=== PATIENT | male | born 1980 | race African-American/Black ===

== ENCOUNTER 2016-07-17 02:38 | Inpatient (IN) | payer SELFPAY ==
[2016-07-17] VITALS (10 sets, daily range): BP systolic 118–143; BP diastolic 76–87; PULSE 78–120; RESP 15–20; TEMP 97.4–98.4; O2SAT 94–100
[~2016-07-17] VITALS: Ht 182.9 cm; Wt 68.8 kg
[~2016-07-17 02:38] MED LIST: GLUCTES27 XX; INSU-92; NOVO7030P2 SQ; NOVOLOGSS SQ; Z.0.INSULINSYR XX; Z.0.LANCETS XX
[2016-07-17] MEDS ORDERED: SODIUM CHLOR 0.9% 1000 ML INJ 1,000 ML IV SCH ×2 (03:30→05:27)
[2016-07-17] MEDS ORDERED: DEXT 5%-NACL 0.9% 1000 ML INJ 1,000 ML IV SCH ×2 (03:30→05:27)
[2016-07-17] MEDS: SODIUM CHLOR 0.9% 1000 ML INJ 1,000 ML IV SCH ×2 (03:37→04:30)
--- NOTE | 2016-07-17 03:40 | PD ---
HPI Chief Complaint: Diabetic Time Seen by Provider: 03:22 Travel History International Travel<30 days: No Contact w/Intl Traveler<30days: No Traveled to known affect area: No History of Present Illness HPI 35yo M with insulin dependent diabetes presents to the ED with c/o feeling unwell after running out of insulin 4-5 days ago. Pt has polydipsia and polyuria. Denies any fever, cough, chest pain, sob, n/v, abdominal pain, weakness or numbness. Pt has had multiple prior visits for noncompliance with insulin. PFSH Past Medical History Hx Anticoagulant Therapy: No Autoimmune Disease: No Anxiety: No Depression: No Cancer: No Cardiovascular Problems: No Chemotherapy: No Cerebrovascular Accident: No Diabetes: Yes Patient Takes Glucophage: No Diminished Hearing: No Endocrine: Yes Genitourinary: No Immune Disorder: No Musculoskeletal: No Neurologic: No Psychiatric: No Reproductive: No Respiratory: No Immunizations Current: Yes Migraines: No Radiation Therapy: No Seizures: No Thyroid Disease: No Past Surgical History Abdominal Surgery: No Cardiac Surgery: No Ear Surgery: No Endocrine Surgery: No Eye Surgery: No Genitourinary Surgery: No Gynecologic Surgery: No Hysterectomy: No Oral Surgery: No Thoracic Surgery: No Family History Family Hypercholesterolemia: Yes Social History Alcohol Use: Yes (OCCASIONALLY) Tobacco Use: Yes (1 PPD) Substance Use: No Allergies-Medications (Allergen,Severity, Reaction): Coded Allergies: No Known Allergies (Verified , 07/17/16) Reported Meds & Prescriptions Reported Meds & Active Scripts Active Reported Novolog Inj (Insulin Aspart) 1,000 Unit/10 Ml Vial 1-9 Units SQ ACHS Max dose at bedtime:( )units; sugars less than 70,(0)units; sugars 150-199,(1) unit; sugars 200-249,(3) units; sugars 250-299,(5) units; sugars 300-349,(7) units; sugars greater than 349,(9) units Novolin 70-30 Inj (Insulin Human Isoph/Insulin Regular) 1,000 Unit/10 Ml Vial 30 Units SQ BID Review of Systems Except as stated in HPI: all other systems reviewed are Neg Physical Exam Narrative GENERAL: 35yo M in mild distress. SKIN: Warm and dry. Poor skin turgor. HEAD: Atraumatic. Normocephalic. EYES: Pupils equal and round. No scleral icterus. No injection or drainage. ENT: No nasal bleeding or discharge. Mucous membranes pink and moist. NECK: Trachea midline. No JVD. CARDIOVASCULAR: Tachycardic. No murmur appreciated. RESPIRATORY: No accessory muscle use. Clear to auscultation. Breath sounds equal bilaterally. GASTROINTESTINAL: Abdomen soft, non-tender, nondistended. No rebound tenderness or guarding. MUSCULOSKELETAL: No obvious deformities. No clubbing. No cyanosis. No edema. NEUROLOGICAL: Awake and alert. No obvious cranial nerve deficits. Motor grossly within normal limits. Normal speech. PSYCHIATRIC: Appropriate mood and affect; insight and judgment normal. Data Data Last Documented VS Vital Signs Date Time Temp Pulse Resp B/P Pulse Ox O2 Delivery O2 Flow Rate FiO2 07/17/16 02:42 97.6 120 16 118/80 96 Room Air Orders ^ Yoga Coordinator / Telemetry (07/17/16 03:30) ^ Insert Iv (07/17/16 03:30) Diet Npo (07/17/16 Breakfast) Complete Blood Count With Diff (07/17/16 03:30) Comprehensive Metabolic Panel (07/17/16 03:30) Magnesium (Mg) (07/17/16 03:30) Phosphorus (Po4) (07/17/16 03:30) Beta Hydroxybutyrate (Acetone) (07/17/16 03:30) Sodium Chlor 0.9% 1000 Ml Inj (Ns 1000 M (07/17/16 03:30) Sodium Chlor 0.9% 1000 Ml Inj (Ns 1000 M (07/17/16 03:30) Dext 5%-Nacl 0.9% 1000 Ml Inj (D5w-Ns 10 (07/17/16 03:30) Urinalysis - C+S If Indicated (07/17/16 03:30) Insulin Regular (Iv Infusion) (Novolin R (07/17/16 04:45) Sodium Chlor 0.9% 1000 Ml Inj (Ns 1000 M (07/17/16 05:00) Resp Blood Gas Venous (07/17/16 ) Insulin Human Regular Inj (Novolin R Inj (07/17/16 05:30) Admit Order (Ed Use Only) (07/17/16 05:25) Consult Welding Machine Operator Arc (07/17/16 ) Labs Laboratory Tests Test 07/17/16 07/17/16 03:30 05:20 White Blood Count 4.3 TH/MM3 Red Blood Count 6.11 MIL/MM3 Hemoglobin 17.5 GM/DL Hematocrit 51.7 % Mean Corpuscular Volume 84.6 FL Mean Corpuscular Hemoglobin 28.6 PG Mean Corpuscular Hemoglobin 33.7 % Concent Red Cell Distribution Width 12.5 % Platelet Count 248 TH/MM3 Mean Platelet Volume 8.3 FL Neutrophils (%) (Auto) 59.8 % Lymphocytes (%) (Auto) 31.2 % Monocytes (%) (Auto) 8.3 % Eosinophils (%) (Auto) 0.2 % Basophils (%) (Auto) 0.5 % Neutrophils # (Auto) 2.6 TH/MM3 Lymphocytes # (Auto) 1.3 TH/MM3 Monocytes # (Auto) 0.4 TH/MM3 Eosinophils # (Auto) 0.0 TH/MM3 Basophils # (Auto) 0.0 TH/MM3 CBC Comment DIFF FINAL Differential Comment Sodium Level 123 MEQ/L Potassium Level 5.8 MEQ/L Chloride Level 81 MEQ/L Carbon Dioxide Level 23.4 MEQ/L Anion Gap 19 MEQ/L Blood Urea Nitrogen 30 MG/DL Creatinine 1.89 MG/DL Estimat Glomerular Filtration 49 ML/MIN Rate Random Glucose 776 MG/DL Calcium Level 9.8 MG/DL Phosphorus Level 5.8 MG/DL Magnesium Level 2.8 MG/DL Total Bilirubin 0.6 MG/DL Aspartate Amino Transf 10 U/L (AST/SGOT) Alanine Aminotransferase 26 U/L (ALT/SGPT) Alkaline Phosphatase 105 U/L Total Protein 8.7 GM/DL Albumin 4.2 GM/DL B-Hydroxybutyrate 9.60 MMOL/L Urine Color LIGHT-YELLOW Urine Turbidity CLEAR Urine pH 5.0 Urine Specific [place] 1.029 Urine Protein NEG mg/dL Urine Glucose (UA) 1000 mg/dL Urine Ketones 80 mg/dL Urine Occult Blood NEG Urine Nitrite NEG Urine Bilirubin NEG Urine Urobilinogen LESS THAN 2.0 MG/DL Urine Leukocyte Esterase NEG Urine RBC LESS THAN 1 /hpf Urine WBC 1 /hpf Urine Bacteria RARE /hpf Urine Mucus FEW /lpf Microscopic Urinalysis Comment CULT NOT INDICATED MDM Medical Decision Making Medical Screen Exam Complete: Yes Emergency Medical Condition: Yes Differential Diagnosis DKA vs. Hyperosmolar hyperglycemic syndrome vs. infection Narrative Course 35yo M with insulin dependent diabetes here with elevated glucose secondary to noncompliance. Labs reviewed, no leukocytosis. H/H hemoconcentrated. Pt received 2 liters of NS, 3rd liter ordered. Glucose 776. CO2 23.4. Anion gap is increased at 19. Creatinine elevated at 1.89. K elevated at 5.8 but pt is likely potassium depleted and this will correct once I correct the acidosis. B- hydroxybutrate is elevated at 9.60. Pt started on insulin drip at 7 units/hr and will continue until gap closes. Discussed with Dr. Mccollum and accepted to ICU. ICU consult also placed. Pt agrees with plan. Critical Care Narrative Aggregate critical care time was 35 minutes. Time to perform other separately billable procedures was not included in the critical care time. My time did not include minutes spent treating any other patients simultaneously or on activities that did not directly contribute to the patient's treatment. The services I provided to this patient were to treat and/or prevent clinically significant deterioration that could result in: cardiovascular collapse or . I provided critical care services requiring my management, as noted below: Chart data review, documentation time, medication orders and management, vital sign assessment/reviewing monitor data, ordering and reviewing lab tests, ordering and interpreting/reviewing x-rays and diagnostic studies, care of the patient and discussion of the patient with the admitting physicians. Diagnosis Primary Impression: Diabetic ketoacidosis Qualified Code: E10.10 - Diabetic ketoacidosis without coma associated with type 1 diabetes mellitus Admitting Information Admitting Physician Requests: Minerva Chambers DO Jul 17, 2016 03:40
[2016-07-17 04:02] LABS: AUTOMATED NEUTROPHIL # 2.6 TH/MM3 (1.8-7.7); BASOPHIL % 0.5 % (0.0-2.0); EOSINOPHIL % 0.2 % (0.0-4.0); HEMATOCRIT 51.7 % (39.0-51.0); HEMO FLAGS DIFF FINAL; LYMPH % 31.2 % (9.0-44.0); LYMPHOCYTE # 1.3 TH/MM3 (1.0-4.8); MEAN CELL VOLUME 84.6 FL (80.0-100.0); MEAN CORPUSCULAR HEMOGLOBIN 28.6 PG (27.0-34.0); MEAN CORPUSCULAR HGB CONC 33.7 % (32.0-36.0); MONO % 8.3 % (0.0-8.0); NEUT % 59.8 % (16.0-70.0); PLATELET COUNT 248 TH/MM3 (150-450); RED BLOOD COUNT 6.11 MIL/MM3 (4.50-5.90); RED CELL DISTRIBUTION WIDTH 12.5 % (11.6-17.2); WHITE BLOOD COUNT 4.3 TH/MM3 (4.0-11.0)
[2016-07-17 04:20] LABS: ALKALINE PHOSPHATASE 105 U/L (45-117); ALT (GPT) 26 U/L (12-78); ANION GAP 19 MEQ/L (5-15); AST (GOT) 10 U/L (15-37); BICARBONATE 23.4 MEQ/L (21.0-32.0); BLOOD UREA NITROGEN 30 MG/DL (7-18); CHLORIDE 81 MEQ/L (98-107); GLOMERULAR FILTRATION RATE 49 ML/MIN (>89); MAGNESIUM 2.8 MG/DL (1.5-2.5); POTASSIUM 5.8 MEQ/L (3.5-5.1); TOTAL BILIRUBIN ADULT 0.6 MG/DL (0.2-1.0)
[2016-07-17 04:32] LABS: SODIUM (NA) 123 MEQ/L (136-145)
[2016-07-17] MEDS ORDERED: INSULIN REGULAR (IV INFUSION) 100 UNITS in SODIUM CHLORIDE 0.9% INJ 99 ML IV SCH ×2 (04:45→05:30)
[2016-07-17] MEDS ORDERED: SODIUM CHLOR 0.9% 1000 ML INJ 1,000 ML IV ONE (05:00)
[2016-07-17] MEDS ORDERED: INSULIN HUMAN REGULAR 1,000 UNITS/10 ML VIAL IVP ONE (05:30)
[2016-07-17] MEDS ORDERED: POTASSIUM CHLOR 20 MEQ PREMIX 100 ML IV PRN ×6 (05:30)
[2016-07-17] MEDS ORDERED: SODIUM PHOSPHATE INJ 15 MMOL in SODIUM CHLORIDE 0.9% INJ 100 ML IV PRN (05:30)
[2016-07-17] MEDS ORDERED: MISCELLANEOUS NURSING INFORMATION XX SCH (05:30)
[2016-07-17] MEDS ORDERED: POTASSIUM CHLOR 40 MEQ PREMIX 100 ML IV PRN ×2 (05:30)
[2016-07-17] MEDS ORDERED: SODIUM BICARBONATE 8.4% SOLN 50 MEQ/50 ML VIAL IV PRN ×2 (05:30)
[2016-07-17] MEDS ORDERED: CHLORHEXIDINE GLUCONATE 2 % 1 PACK (2 CLOTHS) TOP PRN (05:30)
[2016-07-17 05:43] LABS: BLOOD GAS VENOUS BASE EXCESS -3.4 mmol/L (-2-2); BLOOD GAS VENOUS HCO3 22 mmol/L (22-26); BLOOD GAS VENOUS O2 CONTENT 13.1 Vol % (9.0-17.0); BLOOD GAS VENOUS O2 HGB SAT 60 % (70-76); BLOOD GAS VENOUS PCO2 51 mmHg (44-48); BLOOD GAS VENOUS PO2 37 mmHg (35-40); BLOOD GAS VENOUS pH 7.27 (7.360-7.400); CRITICAL VALUE YES; TEMP CORR TO 98.6
[2016-07-17 05:45] LABS: DRAW SITE IV; FIO2 21 %; OXYGEN DEVICE ROOM AIR; STAT YES
--- NOTE | 2016-07-17 05:49 | PD.CONS ---
HPI Service Critical Care Medicine Consult Requested By Debbie Reason for Consult DKA Primary Care Physician No Primary Care Physician History of Present Illness 35 y/o presents with mild DKA, normal bicarb, minimal anion gap. Dehydration is moderate to severe. We will defer this consult. Please call if our assistance is needed at anytime. Thanks. Past Family Social History Allergies: Coded Allergies: No Known Allergies (Verified , 07/17/16) Physical Exam Vital Signs Vital Signs Date Time Temp Pulse Resp B/P Pulse Ox O2 Delivery O2 Flow Rate FiO2 07/17/16 02:42 97.6 120 16 118/80 96 Room Air Laboratory Laboratory Tests Test 07/17/16 07/17/16 03:30 05:32 White Blood Count 4.3 Red Blood Count 6.11 Hemoglobin 17.5 Hematocrit 51.7 Mean Corpuscular Volume 84.6 Mean Corpuscular Hemoglobin 28.6 Mean Corpuscular Hemoglobin 33.7 Concent Red Cell Distribution Width 12.5 Platelet Count 248 Mean Platelet Volume 8.3 Neutrophils (%) (Auto) 59.8 Lymphocytes (%) (Auto) 31.2 Monocytes (%) (Auto) 8.3 Eosinophils (%) (Auto) 0.2 Basophils (%) (Auto) 0.5 Neutrophils # (Auto) 2.6 Lymphocytes # (Auto) 1.3 Monocytes # (Auto) 0.4 Eosinophils # (Auto) 0.0 Basophils # (Auto) 0.0 CBC Comment DIFF FINAL Differential Comment Sodium Level 123 Potassium Level 5.8 Chloride Level 81 Carbon Dioxide Level 23.4 Anion Gap 19 Blood Urea Nitrogen 30 Creatinine 1.89 Estimat Glomerular Filtration 49 Rate Random Glucose 776 Calcium Level 9.8 Phosphorus Level 5.8 Magnesium Level 2.8 Total Bilirubin 0.6 Aspartate Amino Transf 10 (AST/SGOT) Alanine Aminotransferase 26 (ALT/SGPT) Alkaline Phosphatase 105 Total Protein 8.7 Albumin 4.2 B-Hydroxybutyrate 9.60 Blood Gas Puncture Site IV Blood Gas Patient Temperature 98.6 Venous Blood pH 7.27 Venous Blood Partial Pressure 51 CO2 Venous Blood Partial Pressure 37 O2 Venous Blood HCO3 22 Venous Blood Oxygen Saturation 60 Venous Blood Oxygen Content 13.1 Venous Blood Base Excess -3.4 Oxygen Delivery Device ROOM AIR Blood Gas Inspired Oxygen 21 Result Diagram: 07/17/16 0330 07/17/16 0330 Christopher Salinas MD Jul 17, 2016 05:49
[2016-07-17 05:58] LABS: BACTERIA, URINE RARE /hpf; BLOOD, URINE NEG (NEG); COMMENT (UR) CULT NOT INDICATED; CULTURE IF INDICATED CULT NOT INDICATED; GLUCOSE,URINE 1000 mg/dL (NEG); KETONE, URINE 80 mg/dL (NEG); MUCUS URINE FEW /lpf (OCC); NITRITE,URINE NEG (NEG); URINE COLOR LIGHT-YELLOW (YELLW/STRAW)
[2016-07-17] MEDS ORDERED: NOVOLOGP2 SQ (08:06)
[2016-07-17] MEDS ORDERED: NOVO7030P2 SQ (08:06)
[2016-07-17] MEDS ORDERED: GLUCAGON 1 MG/ML VIAL OTHER PRN (11:45)
[2016-07-17] MEDS ORDERED: DEXTROSE 50% IN WATER 50 ML VIAL(D50) IV PUSH PRN (11:45)
--- NOTE | 2016-07-17 11:47 | HHI.HP ---
[facility] Primary [facility] Physician No Primary Care Physician Admission Diagnosis DKA Diagnoses: Chief Complaint: polyuria, polydipsia, run out of meds. Travel History International Travel<30 Days: No Contact w/Intl Traveler <30 Da: No Traveled to Known Affected Are: No History of Present Illness 35yo M with insulin dependent diabetes presents to the ED with c/o feeling unwell after running out of insulin 4-5 days ago. Pt has polydipsia and polyuria. Denies any fever, cough, chest pain, sob, n/v, abdominal pain, weakness or numbness. Pt has had multiple prior visits for noncompliance with insulin and follow up. Review of Systems Constitutional: DENIES: Fever, Chills, Change in appetite Endocrine: COMPLAINS OF: Polydipsia, Polyuria, DENIES: Heat/cold intolerance Eyes: DENIES: Blurred vision, Eye pain Ears, nose, mouth, throat: DENIES: Tinnitus, Hearing loss, Vertigo, Nasal discharge, Oral lesions, Throat pain, Hoarseness, Ear Pain, Running Nose, Epistaxis, Sinus Pain, Toothache, Odynophagia Respiratory: DENIES: Apneas, Cough, Snoring, Wheezing, Hemoptysis, Sputum production, Shortness of breath Cardiovascular: DENIES: Chest pain, Palpitations, Syncope, Dyspnea on Exertion , PND, Lower Extremity Edema, Orthopnea, Claudication Gastrointestinal: DENIES: Abdominal pain, Black stools, Bloody stools, Constipation, Diarrhea, Nausea, Vomiting, Difficulty Swallowing, Anorexia Genitourinary: DENIES: Urgency, Hematuria Integumentary: DENIES: Rash Neurologic: DENIES: Abnormal gait, Headache, Localized weakness, Paresthesias, Seizures, Speech Problems, Tremor, Poor Balance Psychiatric: DENIES: Anxiety, Depression Past Family Social History Past Medical History IDDM, noncompliance with meds and follow up Past Surgical History None Reported Medications Reported Meds & Active Scripts Active Reported Novolog Inj (Insulin Aspart) 1,000 Unit/10 Ml Vial 1-9 Units SQ ACHS Max dose at bedtime:( )units; sugars less than 70,(0)units; sugars 150-199,(1) unit; sugars 200-249,(3) units; sugars 250-299,(5) units; sugars 300-349,(7) units; sugars greater than 349,(9) units Novolin 70-30 Inj (Insulin Human Isoph/Insulin Regular) 1,000 Unit/10 Ml Vial 30 Units SQ BID Allergies: Coded Allergies: No Known Allergies (Verified , 07/17/16) Family History Maternal GM with DM Social History Tobacco use 1 pack per day Occasional marijuana use Denies alcohol use Physical Exam Vital Signs Vital Signs Date Time Temp Pulse Resp B/P Pulse Ox O2 Delivery O2 Flow Rate FiO2 07/17/16 10:00 86 07/17/16 08:02 101 20 132/77 95 Room Air 07/17/16 06:22 92 18 123/83 100 Room Air 07/17/16 02:42 97.6 120 16 118/80 96 Room Air Physical Exam GENERAL: This is a well-nourished, well-developed patient, in no apparent distress. SKIN: No rashes, ecchymoses or lesions. Cool and dry. HEAD: Atraumatic. Normocephalic. No temporal or scalp tenderness. EYES: Pupils equal round and reactive. Extraocular motions intact. No scleral icterus. No injection or drainage. ENT: Nose without bleeding, purulent drainage or septal hematoma. Throat without erythema, tonsillar hypertrophy or exudate. Uvula midline. Airway patent. NECK: Trachea midline. No JVD or lymphadenopathy. Supple, nontender, no meningeal signs. CARDIOVASCULAR: Regular rate and rhythm without murmurs, gallops, or rubs. RESPIRATORY: Clear to auscultation. Breath sounds equal bilaterally. No wheezes , rales, or rhonchi. GASTROINTESTINAL: Abdomen soft, non-tender, nondistended. No hepato-splenomegaly , or palpable masses. No guarding. MUSCULOSKELETAL: Extremities without clubbing, cyanosis, or edema. No joint tenderness, effusion, or edema noted. No calf tenderness. Negative Homans sign bilaterally. NEUROLOGICAL: Awake and alert. Cranial nerves II through XII intact. Motor and sensory grossly within normal limits. Five out of 5 muscle strength in all muscle groups. Normal speech. Laboratory Laboratory Tests Test 07/17/16 07/17/16 07/17/16 03:30 05:20 05:32 White Blood Count 4.3 Red Blood Count 6.11 Hemoglobin 17.5 Hematocrit 51.7 Mean Corpuscular Volume 84.6 Mean Corpuscular Hemoglobin 28.6 Mean Corpuscular Hemoglobin 33.7 Concent Red Cell Distribution Width 12.5 Platelet Count 248 Mean Platelet Volume 8.3 Neutrophils (%) (Auto) 59.8 Lymphocytes (%) (Auto) 31.2 Monocytes (%) (Auto) 8.3 Eosinophils (%) (Auto) 0.2 Basophils (%) (Auto) 0.5 Neutrophils # (Auto) 2.6 Lymphocytes # (Auto) 1.3 Monocytes # (Auto) 0.4 Eosinophils # (Auto) 0.0 Basophils # (Auto) 0.0 CBC Comment DIFF FINAL Differential Comment Sodium Level 123 Potassium Level 5.8 Chloride Level 81 Carbon Dioxide Level 23.4 Anion Gap 19 Blood Urea Nitrogen 30 Creatinine 1.89 Estimat Glomerular Filtration 49 Rate Random Glucose 776 Calcium Level 9.8 Phosphorus Level 5.8 Magnesium Level 2.8 Total Bilirubin 0.6 Aspartate Amino Transf 10 (AST/SGOT) Alanine Aminotransferase 26 (ALT/SGPT) Alkaline Phosphatase 105 Total Protein 8.7 Albumin 4.2 B-Hydroxybutyrate 9.60 Urine Color LIGHT-YELLOW Urine Turbidity CLEAR Urine pH 5.0 Urine Specific [place] 1.029 Urine Protein NEG Urine Glucose (UA) 1000 Urine Ketones 80 Urine Occult Blood NEG Urine Nitrite NEG Urine Bilirubin NEG Urine Urobilinogen LESS THAN 2.0 Urine Leukocyte Esterase NEG Urine RBC LESS THAN 1 Urine WBC 1 Urine Bacteria RARE Urine Mucus FEW Microscopic Urinalysis Comment CULT NOT INDICATED Blood Gas Puncture Site IV Blood Gas Patient Temperature 98.6 Venous Blood pH 7.27 Venous Blood Partial Pressure 51 CO2 Venous Blood Partial Pressure 37 O2 Venous Blood HCO3 22 Venous Blood Oxygen Saturation 60 Venous Blood Oxygen Content 13.1 Venous Blood Base Excess -3.4 Oxygen Delivery Device ROOM AIR Blood Gas Inspired Oxygen 21 Result Diagram: 07/17/1632907/17/16329 Assessment and Plan Assessment and Plan 1. Hyperglycemia: Non-Ketotic Hyperosmolar State. Secondary to Non- compliance on Insulin, ran out of meds 4 days ago. BS 1157 on arrival, CO2 28, B-hydroxy minimally elevated. S/p 3L IVF and started on Insulin gtt in ER. Will continue w/ Insulin protocol for now, plan to d/c Insulin gtt after improvement of BS. Check Hgb A1c. Continue IVF. 2. DM: Uncontrolled secondary to Non-compliance ( last A1c 12/12/15 was greater than 19). Normally on Insulin 70/30 30u bid. Will start levemir and also ISS. 3. Tobacco Abuse: Pt counselled. Ativan/NicoDerm prn if needed. 4. DVT Prophylaxis: SCD/Teds. 5. Case management for d/c planning as needed. Code Status Full code Discussed Condition With Patient, ICU nurse Physician Certification 2 Midnight Certification Type: Admission for Inpatient Services Order for Inpatient Services The services are ordered in accordance with Medicare regulations or non- Medicare payer requirements, as applicable. In the case of services not specified as inpatient-only, they are appropriately provided as inpatient services in accordance with the 2-midnight benchmark. Estimated LOS (days): 3 days is the estimated time the patient will need to remain in the hospital, assuming treatment plan goals are met and no additional complications. Post-Hospital Plan: Home Tiff Alfred MD Jul 17, 2016 11:47
[2016-07-17 12:08] LABS: BICARBONATE 30.2 MEQ/L (21.0-32.0); MAGNESIUM 2.3 MG/DL (1.5-2.5)
[2016-07-17] MEDS ORDERED: INSULIN DETEMIR 100 UNITS/ML VIAL SQ ONE (12:45)
[2016-07-17 17:19] LABS: BETA-HYDROXYBUTYRATE 4.06 MMOL/L (0.00-0.39); BICARBONATE 28.4 MEQ/L (21.0-32.0); MAGNESIUM 2.1 MG/DL (1.5-2.5); POTASSIUM 5.3 MEQ/L (3.5-5.1)
[2016-07-17] MEDS: INSULIN ASPART SUPPLEMENTAL SCALE SQ SCH ×2 (17:47→21:00)
[2016-07-17] MEDS ORDERED: INSULIN DETEMIR 100 UNITS/ML VIAL SQ SCH (21:00)
[2016-07-17 23:24] LABS: BICARBONATE 29.3 MEQ/L (21.0-32.0); POTASSIUM 3.8 MEQ/L (3.5-5.1)
[2016-07-18] VITALS: BP 146/90; PULSE 95; RESP 16; TEMP 98.6; O2SAT 99
[2016-07-18] MEDS ORDERED: INSULIN HUMAN REGULAR 1,000 UNITS/10 ML VIAL IVP ONE (01:15)
[2016-07-18] MEDS ORDERED: CHLORHEXIDINE GLUCONATE 2 % 1 PACK (2 CLOTHS) TOP SCH (04:00)
[2016-07-18 04:05] VITALS: BP_SYST 116; BP_SYST 141; BP_DIAS 69; BP_DIAS 73; PULSE 72; PULSE 92; RESP 16; TEMP 95.8; TEMP 97.8; O2SAT 97; O2SAT 99
[2016-07-18 04:58] LABS: BETA-HYDROXYBUTYRATE 0.16 MMOL/L (0.00-0.39); BICARBONATE 32.3 MEQ/L (21.0-32.0); MAGNESIUM 2.3 MG/DL (1.5-2.5); POTASSIUM 3.7 MEQ/L (3.5-5.1)
[2016-07-18] MEDS: INSULIN ASPART SUPPLEMENTAL SCALE SQ SCH (07:00)
[2016-07-18 08:00] VITALS: BP 118/92; PULSE 93; RESP 20; TEMP 98; O2SAT 99
[2016-07-18] MEDS ORDERED: NOVO7030P2 SQ (08:00)
[2016-07-18] MEDS ORDERED: NOVOLOGP2 SQ (08:00)
--- NOTE | 2016-07-18 08:00 | HHI.DCPOC ---
Discharge Care Plan Goals to Promote Your Health * To prevent worsening of your condition and complications * To maintain your health at the optimal level Directions to Meet Your Goals Take your medications as prescribed Follow your dietary instruction Follow activity as directed Keep your appointments as scheduled Take your immunizations and boosters as scheduled If your symptoms worsen call your PCP, if no PCP go to Urgent Care Center or Emergency Room Smoking is Dangerous to Your Health. Avoid second hand smoke Call the 24-hour hour crisis hotline for domestic abuse at Tiff Alfred MD Jul 18, 2016 08:00
[2016-07-18] MEDS ORDERED: INSU1MIS15 (08:05)
[2016-07-18] MEDS ORDERED: BIOM30MI (08:05)
[2016-07-18] MEDS ORDERED: GLUCKIT15 (08:05)
[2016-07-18] MEDS ORDERED: GLUCTES12 (08:05)
[2016-07-18] MEDS ORDERED: LANCETS1 MI1 (08:05)
--- NOTE | 2016-07-18 08:12 | HHI.PR ---
Subjective Remarks Feels much better. Tolerates food, no n/v/d/c. BS better controlled Objective Vitals Vital Signs Date Time Temp Pulse Resp B/P Pulse Ox O2 Delivery O2 Flow Rate FiO2 07/18/16 04:05 97.8 92 16 116/69 97 07/18/16 00:00 98.6 95 16 146/90 99 07/17/16 21:10 98.4 98 15 121/76 97 07/17/16 20:00 97 07/17/16 16:31 90 07/17/16 16:00 97.8 78 20 132/81 100 07/17/16 13:58 97.4 91 17 143/87 100 07/17/16 12:00 98.0 95 18 137/80 94 07/17/16 12:00 95 07/17/16 10:00 86 I/O 07/17/16 07/17/16 07/17/16 07/18/16 07/18/16 07/18/16 07:00 15:00 23:00 07:00 15:00 23:00 Intake Total 1797 ml 960 ml 680 ml Output Total 750 ml Balance 1047 ml 960 ml 680 ml Intake Oral 420 ml 960 ml 680 ml IV Total 1377 ml Output Urine Total 750 ml # Voids 1 2 3 # Bowel Movements 2 0 Result Diagram: 07/17/16 0330 07/18/16 0402 Objective Remarks GENERAL: This is a well-nourished, well-developed patient, in no apparent distress. SKIN: No rashes, ecchymoses or lesions. Cool and dry. HEAD: Atraumatic. Normocephalic. No temporal or scalp tenderness. EYES: Pupils equal round and reactive. Extraocular motions intact. No scleral icterus. No injection or drainage. ENT: Nose without bleeding, purulent drainage or septal hematoma. Throat without erythema, tonsillar hypertrophy or exudate. Uvula midline. Airway patent. NECK: Trachea midline. No JVD or lymphadenopathy. Supple, nontender, no meningeal signs. CARDIOVASCULAR: Regular rate and rhythm without murmurs, gallops, or rubs. RESPIRATORY: Clear to auscultation. Breath sounds equal bilaterally. No wheezes , rales, or rhonchi. GASTROINTESTINAL: Abdomen soft, non-tender, nondistended. No hepato-splenomegaly , or palpable masses. No guarding. MUSCULOSKELETAL: Extremities without clubbing, cyanosis, or edema. No joint tenderness, effusion, or edema noted. No calf tenderness. Negative Homans sign bilaterally. NEUROLOGICAL: Awake and alert. Cranial nerves II through XII intact. Motor and sensory grossly within normal limits. Five out of 5 muscle strength in all muscle groups. Normal speech. A/P Assessment and Plan 1. Hyperglycemia: Non-Ketotic Hyperosmolar State. Secondary to Non- compliance on Insulin, ran out of meds 4 days ago. BS 1157 on arrival, CO2 28, B-hydroxy minimally elevated. S/p 3L IVF and started on Insulin gtt in ER. Will continue w/ Insulin protocol for now, plan to d/c Insulin gtt after improvement of BS. Check Hgb A1c. Continue IVF. 2. DM: Uncontrolled secondary to Non-compliance ( last A1c 12/12/15 was greater than 19). Normally on Insulin 70/30 30u bid. Will start levemir and also ISS. BS is better controlled. 3. Tobacco Abuse: Pt counselled. Ativan/NicoDerm prn if needed. 4. DVT Prophylaxis: SCD/Teds. 5. Case management for d/c planning as needed. Code Status Full code Discussed Condition With Patient, nurse Discharge Planning DC home infairly good condition To followup with PCP (Dr Bates) and outreach educator as OP. Refill home insulin, and DME supplies. Meds per med reconciliations Activity ad zara Diet: Diabetic diet Adviced compliance with medications, diet and appointments. Tiff Alfred MD Jul 18, 2016 08:12
== END 2016-07-18 14:12 | disposition home or self-care (01) | DRG 639 ==
LOC: NEPE 02:38 → NEDA 05:27 → HIMW 08:38 → N06A 14:17
PROVIDERS: ADMIT Hospitalist; ATTEND Hospitalist
DX: E10.10 Type 1 diabetes mellitus with ketoacidosis without coma (principal); E86.0 Dehydration; Z91.14 Patient's other noncompliance with medication regimen; Z79.4 Long term (current) use of insulin; F17.210 Nicotine dependence, cigarettes, uncomplicated; F12.90 Cannabis use, unspecified, uncomplicated
CPT/HCPCS: 80048; 80053; 81001; 82010; 82805; 82948; 83735; 84100; 85025; 87641; 96360; J1815; J1817; J7030; J7042

== ENCOUNTER 2016-07-24 22:44 | Inpatient (IN) | payer SELFPAY ==
[~2016-07-24] VITALS: Ht 182.9 cm; Wt 73.0 kg
[~2016-07-24 22:44] MED LIST changes: +BIOM30MI; +GLUCKIT15; +GLUCTES12; -GLUCTES27 XX; -INSU-92; +INSU1MIS15; +LANCETS1 MI1; +NOVOLOGP2 SQ; -NOVOLOGSS SQ; -Z.0.INSULINSYR XX; -Z.0.LANCETS XX
[2016-07-24 22:47] VITALS: BP 134/86; PULSE 91; RESP 16; TEMP 98.2; O2SAT 97
[2016-07-24] MEDS ORDERED: SODIUM CHLOR 0.9% 1000 ML INJ 1,000 ML IV ONE ×2 (23:15)
--- NOTE | 2016-07-24 23:30 | PD ---
HPI Chief Complaint: Diabetic Time Seen by Provider: 23:02 Travel History International Travel<30 days: No Contact w/Intl Traveler<30days: No Traveled to known affect area: No History of Present Illness HPI The patient is a 35 year old male who presents to the [facility] emergency department with a history of diabetes mellitus, first diagnosed 20 years ago, with recent admission on July 17 related to DKA and medication noncompliance. The patient was discharged the next day and given prescriptions for Levemir and sliding scale insulin. He reports that the medications were actually filled for him prior to discharge. He reports that he was staying with her friend and unfortunately got kicked out. The friend broke his bottles of insulin and he has not been taking them since Saturday. He reports that 2 days ago he began to have generalized abdominal discomfort, polyuria, and polydipsia. He denies having any nausea or vomiting. The patient reports that he last moved his bowels yesterday. The patient denies any recent fevers, cough , congestion, neck pain, chest pain, shortness of breath, vomiting, diarrhea, or neurologic symptoms. [facility] Past Medical History Narrative Medical The patient's past medical history is significant for diabetes mellitus, diagnosed reportedly 20 years ago, history of medication noncompliance. Hx Anticoagulant Therapy: No Autoimmune Disease: No Anxiety: No Depression: No Cancer: No Cardiovascular Problems: No Chemotherapy: No Cerebrovascular Accident: No Diabetes: Yes Patient Takes Glucophage: No Diminished Hearing: No Endocrine: Yes Gastrointestinal Disorders: No Genitourinary: No Headaches: No Immune Disorder: No Implanted Vascular Access Dvce: No Musculoskeletal: No Neurologic: No Psychiatric: No Reproductive: No Respiratory: No Immunizations Current: Yes Migraines: No Radiation Therapy: No Seizures: No Thyroid Disease: No Influenza Vaccination: Yes Past Surgical History Narrative Surgical The patient's past surgical history is significant for none. Surgical History: No Previous Surgery Abdominal Surgery: No Cardiac Surgery: No Ear Surgery: No Endocrine Surgery: No Eye Surgery: No Genitourinary Surgery: No Gynecologic Surgery: No Hysterectomy: No Neurologic Surgery: No Oral Surgery: No Thoracic Surgery: No Other Surgery: No Family History Family Hypercholesterolemia: Yes Social History Alcohol Use: Yes (OCCASIONALLY) Tobacco Use: Yes (1 PPD) Substance Use: Yes (marijuana) Allergies-Medications (Allergen,Severity, Reaction): Coded Allergies: No Known Allergies (Verified , 07/24/16) Reported Meds & Prescriptions Reported Meds & Active Scripts Active Sharpsafety Sharps Contai (Parenteral Therapy Supplies) 1 Mis Mis 1 Ea .ROUTE DIRECTED Glucocom Test Strips (Blood Glucose Test Strips) 1 Whitney Whitney 1 Ea .ROUTE DIRECTED Lancets 1 Mis Mis 1 Ea .ROUTE DIRECTED Insulin Syringe/U-100/31G X 5/16" 1 ml 1 Mis Mis 1 Ea .ROUTE DIRECTED Glucocom Blood Glucose Mo W/Device (Device) 1 Kit Kit 1 Kit .ROUTE DIRECTED Novolog Inj (Insulin Aspart) 1,000 Unit/10 Ml Vial 1-9 Units SQ ACHS Max dose at bedtime:( )units; sugars less than 70,(0)units; sugars 150-199,(1) unit; sugars 200-249,(3) units; sugars 250-299,(5) units; sugars 300-349,(7) units; sugars greater than 349,(9) units Novolin 70-30 Inj (Insulin Human Isoph/Insulin Regular) 1,000 Unit/10 Ml Vial 30 Units SQ BID Review of Systems Except as stated in HPI: all other systems reviewed are Neg General / Constitutional: No: Fever Eyes: No: Visual changes HENT: No: Headaches Cardiovascular: No: Chest Pain or Discomfort Respiratory: No: Shortness of Breath Gastrointestinal: Positive: Abdominal Pain, No: Nausea, Vomiting, Diarrhea, Changes in Bowel Habits, Indigestion, Loss of Appetite Genitourinary: Positive: Frequency, No: Urgency, Dysuria, Flank Pain Musculoskeletal: No: Pain Skin: No Rash Neurologic: Positive: Weakness (generalized weakness), No: Focal Abnormalities , Headache, Change in Mentation, Sensory Disturbance Psychiatric: No: Depression Endocrine: Positive: Polyuria, Polydipsia Hematologic/Lymphatic: No: Easy Bruising Physical Exam Narrative General: The patient is a well-developed, thin appearing male, in no acute distress. Head and Neck exam: Head is normocephalic atraumatic. Eyes: Pupils are equal round and reactive to light. Nose: Midline septum with pink mucous membranes Mouth: Dentition unremarkable. Tacky mucus membranes. Posterior oropharynx is not erythematous. No tonsillar hypertrophy. Uvula midline. Airway patent. Neck: No palpable lymphadenopathy. No nuchal rigidity. No thyromegaly. Cardiovascular: Regular rate and rhythm without murmurs, gallops, or rubs. Lungs: Clear to auscultation bilaterally. No wheezes, rhonchi, or rales. Abdomen: Soft, with reported discomfort on palpation in the suprapubic area, no other tenderness on palpation of the other quadrants of the abdomen. No guarding, rebound, or rigidity. Normal bowel sounds are audible. Extremities: No clubbing, cyanosis, or edema. 2+ pulses in his radial artery bilaterally. No calf tenderness on palpation. Back: No spinous process tenderness to palpation. No costovertebral angle tenderness to palpation. Neurologic Exam: Grossly nonfocal. Skin Exam: No rash noted. Intact skin that is warm and dry. Data Data Last Documented VS Vital Signs Date Time Temp Pulse Resp B/P Pulse Ox O2 Delivery O2 Flow Rate FiO2 07/24/16 22:47 98.2 91 16 134/86 97 Orders Electrocardiogram (07/24/16 23:13) Complete Blood Count With Diff (07/24/16 23:13) Comprehensive Metabolic Panel (07/24/16 23:13) Creatine Kinase (Cpk) (07/24/16 23:13) Ckmb (Isoenzyme) Profile (07/24/16 23:13) Troponin I (07/24/16 23:13) B-Type Natriuretic Peptide (07/24/16 23:13) Arterial Blood Gas (Abg) (07/24/16 23:13) Lipase (07/24/16 23:13) Urinalysis - C+S If Indicated (07/24/16 23:13) Magnesium (Mg) (07/24/16 23:13) Beta Hydroxybutyrate (Acetone) (07/24/16 23:13) Phosphorus (Po4) (07/24/16 23:13) Chest, Single Ap (07/24/16 23:13) Iv Access Insert/Monitor (07/24/16 23:13) Ecg Monitoring (07/24/16 23:13) Oximetry (07/24/16 23:13) Sodium Chlor 0.9% 1000 Ml Inj (Ns 1000 M (07/24/16 23:15) Sodium Chlor 0.9% 1000 Ml Inj (Ns 1000 M (07/24/16 23:15) CKMB (07/24/16 23:20) CKMB% (07/24/16 23:20) Insulin Human Regular Inj (Novolin R Inj (07/25/16 00:15) Admit Order (Ed Use Only) (07/25/16 01:35) Sodium Chlor 0.9% 1000 Ml Inj (Ns 1000 M (07/25/16 01:35) Dext 5%-Nacl 0.9% 1000 Ml Inj (D5w-Ns 10 (07/25/16 01:35) Insulin Regular (Iv Infusion) (Novolin R (07/25/16 01:45) Potassium Chlor 40 Meq Premix (Kcl 40 Me (07/25/16 01:45) Potassium Chlor 40 Meq Premix (Kcl 40 Me (07/25/16 01:45) Potassium Chlor 20 Meq Premix (Kcl 20 Me (07/25/16 01:45) Potassium Chlor 20 Meq Premix (Kcl 20 Me (07/25/16 01:45) Potassium Chlor 20 Meq Premix (Kcl 20 Me (07/25/16 01:45) Potassium Chlor 20 Meq Premix (Kcl 20 Me (07/25/16 01:45) Potassium Chlor 20 Meq Premix (Kcl 20 Me (07/25/16 01:45) Potassium Chlor 20 Meq Premix (Kcl 20 Me (07/25/16 01:45) Sodium Bicarbonate 8.4% Inj (Sodium Bica (07/25/16 01:45) Sodium Bicarbonate 8.4% Inj (Sodium Bica (07/25/16 01:45) Sodium Phosphate Inj (Sodium Phosphate I (07/25/16 01:45) Labs Laboratory Tests Test 07/24/16 07/24/16 07/25/16 07/25/16 23:20 23:30 00:25 01:20 White Blood Count 3.6 TH/MM3 Red Blood Count 5.51 MIL/MM3 Hemoglobin 15.8 GM/DL Hematocrit 47.9 % Mean Corpuscular Volume 86.9 FL Mean Corpuscular Hemoglobin 28.7 PG Mean Corpuscular Hemoglobin 33.1 % Concent Red Cell Distribution Width 12.4 % Platelet Count 220 TH/MM3 Mean Platelet Volume 8.9 FL Neutrophils (%) (Auto) 53.2 % Lymphocytes (%) (Auto) 36.7 % Monocytes (%) (Auto) 8.2 % Eosinophils (%) (Auto) 0.9 % Basophils (%) (Auto) 1.0 % Neutrophils # (Auto) 1.9 TH/MM3 Lymphocytes # (Auto) 1.3 TH/MM3 Monocytes # (Auto) 0.3 TH/MM3 Eosinophils # (Auto) 0.0 TH/MM3 Basophils # (Auto) 0.0 TH/MM3 CBC Comment DIFF FINAL Differential Comment B-Type Natriuretic Peptide LESS THAN 2 PG/ML Sodium Level 116 MEQ/L 132 MEQ/L Potassium Level 5.7 MEQ/L 4.4 MEQ/L Chloride Level 77 MEQ/L 92 MEQ/L Carbon Dioxide Level 29.7 MEQ/L 30.7 MEQ/L Anion Gap 9 MEQ/L 9 MEQ/L Blood Urea Nitrogen 26 MG/DL 25 MG/DL Creatinine 1.71 MG/DL 1.37 MG/DL Estimat Glomerular Filtration 55 ML/MIN 71 ML/MIN Rate Random Glucose 1144 MG/DL 728 MG/DL Calcium Level 8.5 MG/DL 8.6 MG/DL Phosphorus Level 2.9 MG/DL Magnesium Level 2.4 MG/DL Total Bilirubin 0.8 MG/DL Aspartate Amino Transf 27 U/L (AST/SGOT) Alanine Aminotransferase 51 U/L (ALT/SGPT) Alkaline Phosphatase 173 U/L Total Creatine Kinase 276 U/L Creatine Kinase MB 4.1 NG/ML Troponin I LESS THAN 0.02 NG/ML Total Protein 8.3 GM/DL Albumin 3.8 GM/DL Lipase 68 U/L B-Hydroxybutyrate 2.03 MMOL/L Blood Gas Puncture Site LT RADIAL Blood Gas Patient Temperature 98.6 Blood Gas HCO3 29 mmol/L Blood Gas Base Excess 3.7 mmol/L Blood Gas Oxygen Saturation 90 % Arterial Blood pH 7.37 Arterial Blood Partial 51 mmHg Pressure CO2 Arterial Blood Partial 83 mmHG Pressure O2 Arterial Blood Oxygen Content 18.7 Vol % Arterial Blood 5.2 % Carboxyhemoglobin Arterial Blood Methemoglobin 2.1 % Blood Gas Hemoglobin 14.8 G/DL Oxygen Delivery Device ROOM AIR Blood Gas Inspired Oxygen 21 % Urine Color COLORLESS Urine Turbidity CLEAR Urine pH 6.5 Urine Specific [place] 1.027 Urine Protein NEG mg/dL Urine Glucose (UA) 1000 mg/dL Urine Ketones 10 mg/dL Urine Occult Blood NEG Urine Nitrite NEG Urine Bilirubin NEG Urine Urobilinogen LESS THAN 2.0 MG/DL Urine Leukocyte Esterase NEG Urine RBC 1 /hpf Urine WBC LESS THAN 1 /hpf Microscopic Urinalysis Comment CULT NOT INDICATED MDM Medical Decision Making Medical Screen Exam Complete: Yes Emergency Medical Condition: Yes Medical Record Reviewed: Yes Interpretation(s) Last Impressions Chest X-Ray 07/24/16 5323 Signed Impressions: Service Date/Time: Sunday, July 24, 2016 23:29 - CONCLUSION: No acute disease. Enoc Ceballos MD Differential Diagnosis DKA, versus hyperosmolar hyperglycemia, versus other electrolyte abnormality, versus dehydration Narrative Course During the course of the patients emergency department visit, the patients history, examination, and differential diagnosis were reviewed with the patient. The patient had IV access obtained and blood work sent for analysis. The patient was placed on a monitor and storage bin tender with oximetry and blood pressure monitoring. An EKG was done. The patient's Accu-Chek revealed that his blood sugar was critically high. The patient had an EKG done on arrival that revealed a sinus rhythm heart rate of 81, QRS duration 86 ms, QTC 404 ms, no acute ST segment elevation is noted that is new compared to previously. The patient does appear to have some J-point elevation in leads V4 and V5. The patient was provided normal saline 1 L IV fluid bolus which was administered 2. The patients laboratory studies were reviewed and remarkable for a CMP that is remarkable for a sodium of 116, chloride 77, potassium 5.7, CO2 29.7, BUN 26, creatinine 1.71, glucose 1144, alkaline phosphatase 173, CPK and troponin I negative, BNP is less than 2, lipase 68. I suspect that the patient's hyponatremia is a pseudohyponatremia from hyperglycemia. The patient's basic metabolic profile will be repeated at the conclusion of this to liter normal saline IV fluid bolus. The patient was given regular insulin 0.1 units per KG bolus times one, therefore 7 units was administered 1. The patient's repeat basic metabolic profile shows a sodium of 132, potassium 4.4, chloride 92, CO2 30.7, BUN 25, creatinine 1.37, glucose 728. Beta hydroxybutyrate is 2.03, urinalysis shows 1000 glucose and 10 ketones, ABG shows a pH of 7.37 bicarbonate 29, base excess 3.7, PCO2 51 PO2 83 with a carboxyhemoglobin of 5.2. Radiology studies were reviewed and remarkable for a chest x-ray that shows no acute abnormality. The patients results were discussed with the patient, including the plan of care. I explained that further testing and/ or monitoring is indicated based on the patients history, examination, and/ or laboratory findings. Therefore, I recommended admission for additional evaluation. The patient expressed understanding and was agreeable with this plan. The patient was admitted to the hospital in guarded condition and sent to a bed under the care of the [facility]. Critical Care Narrative Aggregate critical care time was 32 minutes. Time to perform other separately billable procedures was not included in the critical care time. My time did not include minutes spent treating any other patients simultaneously or on activities that did not directly contribute to the patient's treatment. The services I provided to this patient were to treat and/or prevent clinically significant deterioration that could result in: Progression to metabolic acidosis and DKA, versus dehydration with cardiovascular collapse I provided critical care services requiring my management, as noted below: Chart data review, documentation time, medication orders and management, vital sign assessments/reviewing monitor data, ordering and reviewing lab tests, ordering and interpreting/reviewing x-rays and diagnostic studies, care of the patient and discussion of the patient with the admitting physicians. Physician Communication Physician Communication The patient's case was discussed with Dr. Mccollum who did agree to admit the patient for continued evaluation and treatment at this time. Diagnosis Primary Impression: Hyperglycemia Additional Impression: Noncompliance w/medication treatment due to intermit use of medication Admitting Information Admitting Physician Requests: Jaqueline Mckeon MD Jul 24, 2016 23:30
[2016-07-24 23:39] LABS: AUTOMATED NEUTROPHIL # 1.9 TH/MM3 (1.8-7.7); EOSINOPHIL % 0.9 % (0.0-4.0); HEMATOCRIT 47.9 % (39.0-51.0); HEMO FLAGS DIFF FINAL; LYMPH % 36.7 % (9.0-44.0); LYMPHOCYTE # 1.3 TH/MM3 (1.0-4.8); MEAN CELL VOLUME 86.9 FL (80.0-100.0); MEAN CORPUSCULAR HEMOGLOBIN 28.7 PG (27.0-34.0); MEAN CORPUSCULAR HGB CONC 33.1 % (32.0-36.0); MONO % 8.2 % (0.0-8.0); NEUT % 53.2 % (16.0-70.0); PLATELET COUNT 220 TH/MM3 (150-450); RED BLOOD COUNT 5.51 MIL/MM3 (4.50-5.90); RED CELL DISTRIBUTION WIDTH 12.4 % (11.6-17.2); WHITE BLOOD COUNT 3.6 TH/MM3 (4.0-11.0)
--- NOTE | 2016-07-24 23:43 | RADRPT ---
EXAM DATE/TIME: 07/24/2016 23:29 [place] COMPARISON: CHEST SINGLE AP, February 29, 2016, 4:45. INDICATIONS : Short of breath. MEDICAL HISTORY : Diabetes mellitus type II. SURGICAL HISTORY : None. ENCOUNTER: Initial ACUITY: 1 day PAIN SCORE: 0/10 LOCATION: Bilateral chest FINDINGS: A single view of the chest demonstrates the lungs to be symmetrically aerated without evidence of mas s, infiltrate or effusion. The cardiomediastinal contours are unremarkable. Osseous structures are intact. CONCLUSION: No acute disease. Enoc Ceballos MD on July 24, 2016 at 23:42 Board Certified Radiologist. This report was verified electronically.
[2016-07-24 23:54] LABS: ALKALINE PHOSPHATASE 173 U/L (45-117); ALT (GPT) 51 U/L (12-78); ANION GAP 9 MEQ/L (5-15); AST (GOT) 27 U/L (15-37); BETA-HYDROXYBUTYRATE 2.03 MMOL/L (0.00-0.39); BICARBONATE 29.7 MEQ/L (21.0-32.0); BLOOD UREA NITROGEN 26 MG/DL (7-18); CHLORIDE 77 MEQ/L (98-107); CREATINE KINASE 276 U/L (39-308); GLOMERULAR FILTRATION RATE 55 ML/MIN (>89); MAGNESIUM 2.4 MG/DL (1.5-2.5); POTASSIUM 5.7 MEQ/L (3.5-5.1); TOTAL BILIRUBIN ADULT 0.8 MG/DL (0.2-1.0)
[2016-07-24 23:55] LABS: SODIUM (NA) 116 MEQ/L (136-145)
[2016-07-24 23:57] LABS: BLOOD GAS BASE EXCESS 3.7 mmol/L (-2-2); BLOOD GAS CARBOXYHEMOGLOBIN 5.2 % (0-4); BLOOD GAS HCO3 29 mmol/L (22-26); BLOOD GAS METHEMOGLOBIN 2.1 % (0-2); BLOOD GAS O2 HGB SATURATION 90 % (90-100); BLOOD GAS OXYGEN CONTENT 18.7 Vol % (12.0-20.0); BLOOD GAS PCO2 51 mmHg (38-42); BLOOD GAS PO2 83 mmHG (61-120); BLOOD GAS TOTAL HGB 14.8 G/DL (12.0-16.0); CRITICAL VALUE YES; FIO2 21 %; OXYGEN DEVICE ROOM AIR; TEMP CORR TO 98.6
[2016-07-24 23:58] LABS: DRAW SITE LT RADIAL; NUMBER OF ARTERIAL PUNCTURES 1; STAT YES; ULNAR PULSE PRESENT
[2016-07-25] VITALS (8 sets, daily range): BP systolic 101–144; BP diastolic 63–87; PULSE 78–89; RESP 14–18; TEMP 97.8; O2SAT 95–99
[2016-07-25 00:10] LABS: CKMB 4.1 NG/ML (0.5-3.6)
[2016-07-25] MEDS ORDERED: INSULIN HUMAN REGULAR 1,000 UNITS/10 ML VIAL IV PUSH ONE (00:15)
[2016-07-25 00:42] LABS: BLOOD, URINE NEG (NEG); GLUCOSE,URINE 1000 mg/dL (NEG); KETONE, URINE 10 mg/dL (NEG); NITRITE,URINE NEG (NEG); PH, URINE 6.5 (5.0-8.5); URINE COLOR COLORLESS (YELLW/STRAW)
[2016-07-25 00:45] LABS: COMMENT (UR) CULT NOT INDICATED; CULTURE IF INDICATED CULT NOT INDICATED
[2016-07-25] MEDS ORDERED: SODIUM CHLOR 0.9% 1000 ML INJ 1,000 ML IV SCH ×2 (01:35→11:23)
[2016-07-25] MEDS ORDERED: DEXT 5%-NACL 0.9% 1000 ML INJ 1,000 ML IV SCH ×2 (01:35→11:23)
[2016-07-25] MEDS ORDERED: POTASSIUM CHLOR 40 MEQ PREMIX 100 ML IV PRN ×2 (01:45)
[2016-07-25] MEDS ORDERED: SODIUM PHOSPHATE INJ 15 MMOL in SODIUM CHLORIDE 0.9% INJ 100 ML IV PRN ×2 (01:45→11:30)
[2016-07-25] MEDS ORDERED: SODIUM BICARBONATE 8.4% SOLN 50 MEQ/50 ML VIAL IV PRN ×4 (01:45→11:30)
[2016-07-25] MEDS ORDERED: INSULIN REGULAR (IV INFUSION) 100 UNITS in SODIUM CHLORIDE 0.9% INJ 99 ML IV SCH ×2 (01:45→11:30)
[2016-07-25] MEDS ORDERED: POTASSIUM CHLOR 20 MEQ PREMIX 100 ML IV PRN ×10 (01:45→11:30)
[2016-07-25 02:26] LABS: BICARBONATE 30.7 MEQ/L (21.0-32.0); POTASSIUM 4.4 MEQ/L (3.5-5.1)
[2016-07-25] MEDS ORDERED: DEXTROSE 50% IN WATER 50 ML VIAL(D50) IV PUSH PRN (03:00)
[2016-07-25] MEDS ORDERED: GLUCAGON 1 MG/ML VIAL OTHER PRN (03:00)
[2016-07-25] MEDS ORDERED: SODIUM CHLORIDE 0.9% FLUSH 5 ML FLUSH FLUSH PRN (03:00)
[2016-07-25] MEDS ORDERED: NALOXONE HCL 0.4 MG/ML AMP IV PRN (03:00)
[2016-07-25] MEDS: SODIUM CHLOR 0.9% 1000 ML INJ 1,000 ML IV SCH ×2 (03:39→07:38)
[2016-07-25] MEDS: INSULIN ASPART SUPPLEMENTAL SCALE SQ SCH ×4 (07:35→20:22)
[2016-07-25] MEDS ORDERED: ENOXAPARIN SODIUM 40 MG/0.4 ML SYRINGE SQ SCH (09:00)
[2016-07-25] MEDS ORDERED: SODIUM CHLORIDE 0.9% FLUSH 5 ML FLUSH FLUSH SCH (09:00)
[2016-07-25] MEDS ORDERED: INSULIN HUMAN NPH/R 70/30 1,000 UNITS/10 ML VIAL SQ SCH (09:00)
[2016-07-25 09:29] LABS: BETA-HYDROXYBUTYRATE 1.86 MMOL/L (0.00-0.39); BICARBONATE 28.8 MEQ/L (21.0-32.0); POTASSIUM 3.5 MEQ/L (3.5-5.1)
[2016-07-25 09:47] LABS: CALCIUM-PROTEIN CORRECTED 7.8 MG/DL (8.5-10.1)
[2016-07-25] MEDS ORDERED: MISCELLANEOUS NURSING INFORMATION XX SCH (11:30)
[2016-07-25] MEDS ORDERED: CHLORHEXIDINE GLUCONATE 2 % 1 PACK (2 CLOTHS) TOP PRN (11:30)
[2016-07-25] MEDS ORDERED: CALCIUM GLUCONATE INJ 2 GM in SODIUM CHLORIDE 0.9% INJ 100 ML IV ONE (12:00)
[2016-07-25] MEDS ORDERED: POTASSIUM PHOSPHATE INJ 30 MMOL in SODIUM CHLOR 0.9% 250 ML INJ 250 ML IV ONE (13:00)
[2016-07-25] MEDS ORDERED: DEXTROSE 50% IN WATER 50 ML SYRINGE ONE (13:32)
[2016-07-25] MEDS ORDERED: NICOTINE 21 MG/24 HR PATCH TD SCH (14:00)
--- NOTE | 2016-07-25 14:00 | HHI.HP ---
[facility] [place] Primary Care Physician No Primary Care Physician Admission Diagnosis DKA Diagnoses: Chief Complaint: Sugars out of control Travel History International Travel<30 Days: No Contact w/Intl Traveler <30 Da: No Traveled to Known Affected Are: No History of Present Illness The patient is a 35-year-old male with insulin-dependent diabetes who is presenting to the hospital with abdominal pain and generally feeling unwell. He was recently treated in the hospital for DKA. He was discharged with insulin but he says that his girlfriend broke his insulin bottles and he has not been taking any insulin since or Saturday. He says he had increasing abdominal discomfort, tiredness and generally felt unwell. He is found to have DKA and was started on the insulin drip protocol in the emergency department. His blood sugars improved and he currently feels well except that he still feels tired. He is currently asking to eat something. He would like to drink some water. He denies any chest pain or shortness of breath. He denies any rash or fever. He says he has been ambulating well and has not been off balance. Review of Systems ROS Limitations: Clinical Condition, Poor Historian Constitutional: COMPLAINS OF: Fatigue, Change in appetite Endocrine: COMPLAINS OF: Polydipsia Respiratory: DENIES: Shortness of breath Cardiovascular: DENIES: Chest pain Gastrointestinal: COMPLAINS OF: Abdominal pain Integumentary: DENIES: Rash Neurologic: DENIES: Abnormal gait, Poor Balance Past Family Social History Past Medical History Insulin-dependent diabetes Allergies: Coded Allergies: No Known Allergies (Verified , 07/25/16) Active Ordered Medications Current Medications Medications (Trade) Dose Ordered Sig/Geovanna Route Start Time Stop Time Status Last Admin (NS Flush) 2 ml UNSCH PRN FLUSH 07/25/16 03:00 (NS Flush) 2 ml BID FLUSH 07/25/16 09:00 07/25/16 08:40 (Lovenox Inj) 40 mg Q24H SQ 07/25/16 09:00 07/25/16 08:39 (Narcan Inj) 0.4 mg UNSCH PRN IV 07/25/16 03:00 Insulin Human Isoph/Insulin Regular 30 units 30 units BID SQ 07/25/16 09:00 Hold 07/25/16 08:46 Potassium Phosphate 30 mmol/ Sodium Chloride 260 ml @ 43.333 mls/ hr ONCE ONCE IV 07/25/16 13:00 07/25/16 18:59 07/25/16 12:17 Sodium Chloride 1,000 ml @ 250 mls/hr Q4H IV 07/25/16 11:23 07/25/16 11:59 Dextrose/Sodium Chloride 1,000 ml @ 200 mls/hr Q5H IV 07/25/16 11:23 07/25/16 13:33 Insulin Human Regular 100 units/ Sodium Chloride 100 ml @ 0 mls/hr TITRATE IV 07/25/16 11:30 07/25/16 12:25 Potassium Chloride 100 ml @ 50 mls/hr Q2H PRN IV 07/25/16 11:30 07/25/16 12:45 Potassium Chloride 100 ml @ 50 mls/hr Q2H PRN IV 07/25/16 11:30 Potassium Chloride 100 ml @ 50 mls/hr Q2H PRN IV 07/25/16 11:30 Potassium Chloride 100 ml @ 50 mls/hr Q2H PRN IV 07/25/16 11:30 (Sodium Phosphate Inj/NS Inj) 105 ml @ 25 mls/hr UNSCH PRN IV 07/25/16 11:30 Miscellaneous Information 1 Q361D XX 07/25/16 11:30 (Chlorhexidine 2% Cloth) 3 pack Taper DAILY@04 TOP 07/26/16 04:00 07/22/17 03:59 (Chlorhexidine 2% Cloth) 3 pack UNSCH PRN TOP 07/25/16 11:30 Family History Diabetes Social History The patient smokes 1 pack cigarettes daily. He does not treat alcohol. He uses marijuana occasionally. Physical Exam Vital Signs Vital Signs Date Time Temp Pulse Resp B/P Pulse Ox O2 Delivery O2 Flow Rate FiO2 07/25/16 13:37 85 17 135/77 99 Room Air 07/25/16 12:00 97.8 89 18 124/85 97 07/25/16 09:12 97.8 84 18 144/87 98 Room Air 07/25/16 07:30 78 16 98 Room Air 07/25/16 07:30 97.8 78 17 140/86 98 Room Air 07/25/16 07:00 17 98 Room Air 07/25/16 02:49 85 14 139/86 95 07/24/16 22:47 98.2 91 16 134/86 97 Physical Exam GENERAL: This is a well-nourished, well-developed patient, in no apparent distress. SKIN: No rashes, ecchymoses or lesions. Cool and dry. HEAD: Atraumatic. Normocephalic. No temporal or scalp tenderness. EYES: Pupils equal round and reactive. Extraocular motions intact. No scleral icterus. No injection or drainage. ENT: Nose without bleeding, purulent drainage or septal hematoma. Throat without erythema, tonsillar hypertrophy or exudate. Uvula midline. Airway patent. NECK: Trachea midline. No JVD or lymphadenopathy. Supple, nontender, no meningeal signs. CARDIOVASCULAR: Regular rate and rhythm without murmurs, gallops, or rubs. RESPIRATORY: Clear to auscultation. Breath sounds equal bilaterally. No wheezes , rales, or rhonchi. GASTROINTESTINAL: Abdomen soft, non-tender, nondistended. No hepato-splenomegaly , or palpable masses. No guarding. MUSCULOSKELETAL: Extremities without clubbing, cyanosis, or edema. No joint tenderness, effusion, or edema noted. NEUROLOGICAL: Awake and alert, slightly lethargic. Cranial nerves II through XII intact. Motor and sensory grossly within normal limits. Five out of 5 muscle strength in all muscle groups. Normal speech. PSYCH: Slightly flattened affect. Laboratory Laboratory Tests Test 07/24/16 07/24/16 07/25/16 07/25/16 23:20 23:30 00:25 01:20 White Blood Count 3.6 Red Blood Count 5.51 Hemoglobin 15.8 Hematocrit 47.9 Mean Corpuscular Volume 86.9 Mean Corpuscular Hemoglobin 28.7 Mean Corpuscular Hemoglobin 33.1 Concent Red Cell Distribution Width 12.4 Platelet Count 220 Mean Platelet Volume 8.9 Neutrophils (%) (Auto) 53.2 Lymphocytes (%) (Auto) 36.7 Monocytes (%) (Auto) 8.2 Eosinophils (%) (Auto) 0.9 Basophils (%) (Auto) 1.0 Neutrophils # (Auto) 1.9 Lymphocytes # (Auto) 1.3 Monocytes # (Auto) 0.3 Eosinophils # (Auto) 0.0 Basophils # (Auto) 0.0 CBC Comment DIFF FINAL Differential Comment B-Type Natriuretic Peptide LESS THAN 2 Sodium Level 116 132 Potassium Level 5.7 4.4 Chloride Level 77 92 Carbon Dioxide Level 29.7 30.7 Anion Gap 9 9 Blood Urea Nitrogen 26 25 Creatinine 1.71 1.37 Estimat Glomerular Filtration 55 71 Rate Random Glucose 1144 728 Calcium Level 8.5 8.6 Phosphorus Level 2.9 Magnesium Level 2.4 Total Bilirubin 0.8 Aspartate Amino Transf 27 (AST/SGOT) Alanine Aminotransferase 51 (ALT/SGPT) Alkaline Phosphatase 173 Total Creatine Kinase 276 Creatine Kinase MB 4.1 Troponin I LESS THAN 0.02 Total Protein 8.3 Albumin 3.8 Lipase 68 B-Hydroxybutyrate 2.03 Blood Gas Puncture Site LT RADIAL Blood Gas Patient Temperature 98.6 Blood Gas HCO3 29 Blood Gas Base Excess 3.7 Blood Gas Oxygen Saturation 90 Arterial Blood pH 7.37 Arterial Blood Partial 51 Pressure CO2 Arterial Blood Partial 83 Pressure O2 Arterial Blood Oxygen Content 18.7 Arterial Blood 5.2 Carboxyhemoglobin Arterial Blood Methemoglobin 2.1 Blood Gas Hemoglobin 14.8 Oxygen Delivery Device ROOM AIR Blood Gas Inspired Oxygen 21 Urine Color COLORLESS Urine Turbidity CLEAR Urine pH 6.5 Urine Specific [place] 1.027 Urine Protein NEG Urine Glucose (UA) 1000 Urine Ketones 10 Urine Occult Blood NEG Urine Nitrite NEG Urine Bilirubin NEG Urine Urobilinogen LESS THAN 2.0 Urine Leukocyte Esterase NEG Urine RBC 1 Urine WBC LESS THAN 1 Microscopic Urinalysis Comment CULT NOT INDICATED Test 07/25/16 08:50 Sodium Level 138 Potassium Level 3.5 Chloride Level 102 Carbon Dioxide Level 28.8 Anion Gap 7 Blood Urea Nitrogen 15 Creatinine 0.77 Estimat Glomerular Filtration 139 Rate Random Glucose 312 Calcium Level 7.4 Protein Corrected Calcium 7.8 Phosphorus Level 1.9 Magnesium Level 2.0 Total Protein 6.4 B-Hydroxybutyrate 1.86 Result Diagram: 07/24/16231907/25/16 0850 Imaging Last Impressions Chest X-Ray 07/24/16 2313 Signed Impressions: Service Date/Time: Sunday, July 24, 2016 23:29 - CONCLUSION: No acute disease. Enoc Ceballos MD Assessment and Plan Assessment and Plan DKA Secondary to Non-compliance with insulin. Recent admission for the same. Started on insulin gtt in ER. - d/c insulin gtt as glucose level is low and pt is willing to start a diet. - continue home insulin regimen along with high insulin sliding scale. Increase insulin as needed. - monitor and replete electrolytes. - hospice educator consult. Hypophosphatemia/ hypocalcemia Likely s/t DKA. - monitor and replete electrolytes as needed. Leukopenia May be s/t DKA. The pt is afebrile and without evidence of infection. UA and CXR unremarkable. - continue to monitor. Tobacco Abuse The pt smokes a pack of cigarettes daily, also occasional MJ. - Pt counselled. - Araceli. DVT Prophylaxis: Lovenox. Code Status Full. Discussed Condition With Pt, nurse. Physician Certification 2 Midnight Certification Type: Admission for Inpatient Services Order for Inpatient Services The services are ordered in accordance with Medicare regulations or non- Medicare payer requirements, as applicable. In the case of services not specified as inpatient-only, they are appropriately provided as inpatient services in accordance with the 2-midnight benchmark. Estimated LOS (days): 2 days is the estimated time the patient will need to remain in the hospital, assuming treatment plan goals are met and no additional complications. Post-Hospital Plan: Home Daniel Thibodeaux DO Jul 25, 2016 14:00
[2016-07-25 19:22] LABS: BICARBONATE 27.7 MEQ/L (21.0-32.0); POTASSIUM 3.9 MEQ/L (3.5-5.1)
--- NOTE | 2016-07-25 20:02 | EKG ---
Date Performed: 07/24/2016 Time Performed: 23:45:20 PTAGE: 35 years EKG: Sinus rhythm POSSIBLE LEFT ATRIAL ENLARGEMENT POSSIBLE LEFT VENTRICULAR HYPERTROPHY DIFFUSE ST ELEVATION ABNORMAL ECG PREVIOUS TRACING : 11/20/2015 18.47 Compared to prior tracing no significant change DOCTOR: Chris Sol Interpretating Date/Time 07/25/2016 20:00:34
[2016-07-25] MEDS ORDERED: REMOVE OLD NICODERM (NICOTINE) PATCH TD SCH (21:00)
[2016-07-26] MEDS ORDERED: CHLORHEXIDINE GLUCONATE 2 % 1 PACK (2 CLOTHS) TOP SCH (04:00)
== END 2016-07-25 21:30 | disposition left against medical advice (07) | DRG 638 ==
LOC: NEPE 22:44 → NEDA 07-25 01:37 → NEDH 07-25 05:37 → N05A 07-25 18:29
PROVIDERS: ADMIT Hospitalist; ATTEND Hospitalist
DX: E13.10 Other specified diabetes mellitus with ketoacidosis without coma (principal); E87.1 Hypo-osmolality and hyponatremia; E83.39 Other disorders of phosphorus metabolism; E83.51 Hypocalcemia; F17.210 Nicotine dependence, cigarettes, uncomplicated; D72.819 Decreased white blood cell count, unspecified; Z91.14 Patient's other noncompliance with medication regimen; Z79.4 Long term (current) use of insulin
CPT/HCPCS: 36600; 71010; 80048; 80053; 81001; 82010; 82550; 82552; 82805; 83690; 83735; 83880; 84100; 84155; 84484; 85025; 93005; 96360; 96361; J0610; J1650; J1815; J1817; J3480; J7030; J7042; J7050

== ENCOUNTER 2016-08-12 16:40 | Inpatient (IN) | payer SELFPAY ==
[2016-08-12] VITALS (7 sets, daily range): BP systolic 132–150; BP diastolic 77–87; PULSE 84–97; RESP 16–20; TEMP 97.8; O2SAT 93–99
[~2016-08-12] VITALS: Ht 188 cm; Wt 68.9 kg
[2016-08-12] MEDS ORDERED: SODIUM CHLOR 0.9% 1000 ML INJ 1,000 ML IV ONE (17:00)
--- NOTE | 2016-08-12 17:03 | PD ---
HPI Chief Complaint: Diabetic Time Seen by Provider: 16:44 Travel History International Travel<30 days: No Contact w/Intl Traveler<30days: No Traveled to known affect area: No History of Present Illness HPI 35 years old male complains of body ache, headache, chest wall pain, abdominal pain, fever, nausea vomiting. Patient states the symptoms started 2 days ago. Patient has history diabetes with frequent admissions for DKA. Patient states that he ran out of his insulin 2 days ago. Patient states that he has mild aching headache, chest wall pain, abdominal cramping, intermittent fever. Patient states that he has intermittent nausea vomiting also. Patient denies any coughing congestion. Patient denies any dysuria or frequency. Patient denies any focal weakness or numbness of extremity. PFSH Past Medical History Hx Anticoagulant Therapy: No Autoimmune Disease: No Anxiety: No Depression: No Cancer: No Cardiovascular Problems: No Chemotherapy: No Cerebrovascular Accident: No Diabetes: Yes Patient Takes Glucophage: No Diminished Hearing: No Endocrine: Yes Gastrointestinal Disorders: No Genitourinary: No Headaches: No Immune Disorder: No Implanted Vascular Access Dvce: No Musculoskeletal: No Neurologic: No Psychiatric: No Reproductive: No Respiratory: No Immunizations Current: No Migraines: No Radiation Therapy: No Seizures: No Thyroid Disease: No Tetanus Vaccination: Unknown Influenza Vaccination: No Past Surgical History Abdominal Surgery: No Cardiac Surgery: No Ear Surgery: No Endocrine Surgery: No Eye Surgery: No Genitourinary Surgery: No Gynecologic Surgery: No Hysterectomy: No Neurologic Surgery: No Oral Surgery: No Thoracic Surgery: No Other Surgery: No Family History Family Hypercholesterolemia: Yes Social History Alcohol Use: Yes (OCCASIONALLY) Tobacco Use: Yes (1 PPD) Substance Use: Yes (marijuana) Allergies-Medications (Allergen,Severity, Reaction): Coded Allergies: No Known Allergies (Verified , 08/12/16) Reported Meds & Prescriptions Reported Meds & Active Scripts Active Sharpsafety Sharps Contai (Parenteral Therapy Supplies) 1 Mis Mis 1 Ea .ROUTE DIRECTED Glucocom Test Strips (Blood Glucose Test Strips) 1 Whitney Whitney 1 Ea .ROUTE DIRECTED Lancets 1 Mis Mis 1 Ea .ROUTE DIRECTED Insulin Syringe/U-100/31G X 5/16" 1 ml 1 Mis Mis 1 Ea .ROUTE DIRECTED Glucocom Blood Glucose Mo W/Device (Device) 1 Kit Kit 1 Kit .ROUTE DIRECTED Novolog Inj (Insulin Aspart) 1,000 Unit/10 Ml Vial 1-9 Units SQ ACHS Max dose at bedtime:( )units; sugars less than 70,(0)units; sugars 150-199,(1) unit; sugars 200-249,(3) units; sugars 250-299,(5) units; sugars 300-349,(7) units; sugars greater than 349,(9) units Novolin 70-30 Inj (Insulin Human Isoph/Insulin Regular) 1,000 Unit/10 Ml Vial 30 Units SQ BID Review of Systems General / Constitutional: No: Fever Eyes: No: Visual changes HENT: Positive: Headaches Cardiovascular: Positive: Chest Pain or Discomfort Respiratory: No: Shortness of Breath Gastrointestinal: Positive: Nausea, Vomiting, Abdominal Pain Genitourinary: No: Dysuria Musculoskeletal: Positive: Pain Skin: No Rash Neurologic: No: Weakness Psychiatric: No: Depression Endocrine: No: Polydipsia Hematologic/Lymphatic: No: Easy Bruising Physical Exam Narrative GENERAL: Well-nourished, well-developed patient. SKIN: Warm and dry. HEAD: Normocephalic. EYES: No scleral icterus. No injection or drainage. NECK: Supple, trachea midline. No JVD or lymphadenopathy. CARDIOVASCULAR: Regular rate and rhythm without murmurs, gallops, or rubs. RESPIRATORY: Breath sounds equal bilaterally. No accessory muscle use. GASTROINTESTINAL: Abdomen soft, non-tender, nondistended. MUSCULOSKELETAL: No cyanosis, or edema. BACK: Nontender without obvious deformity. No CVA tenderness. Neurologic exam normal. Data Data Last Documented VS Vital Signs Date Time Temp Pulse Resp B/P Pulse Ox O2 Delivery O2 Flow Rate FiO2 08/12/16 18:00 92 18 133/83 95 Room Air 08/12/16 16:44 97.8 Orders Complete Blood Count With Diff (08/12/16 16:53) Comprehensive Metabolic Panel (08/12/16 16:53) Prothrombin Time / Inr (Pt) (08/12/16 16:53) Act Partial Throm Time (Ptt) (08/12/16 16:53) Arterial Blood Gas (Abg) (08/12/16 16:53) Lipase (08/12/16 16:53) Urinalysis - C+S If Indicated (08/12/16 16:53) Magnesium (Mg) (08/12/16 16:53) Beta Hydroxybutyrate (Acetone) (08/12/16 16:53) Phosphorus (Po4) (08/12/16 16:53) Chest, Single Ap (08/12/16 16:53) Iv Access Insert/Monitor (08/12/16 16:53) Ecg Monitoring (08/12/16 16:53) Oximetry (08/12/16 16:53) Sodium Chlor 0.9% 1000 Ml Inj (Ns 1000 M (08/12/16 17:00) Diet Npo (08/12/16 Dinner) Sodium Chlor 0.9% 1000 Ml Inj (Ns 1000 M (08/12/16 17:29) Sodium Chlor 0.9% 1000 Ml Inj (Ns 1000 M (08/12/16 17:29) Dext 5%-Nacl 0.9% 1000 Ml Inj (D5w-Ns 10 (08/12/16 17:29) Insulin Human Regular Inj (Novolin R Inj (08/12/16 17:30) Insulin Regular (Iv Infusion) (Novolin R (08/12/16 17:30) Potassium Chlor 40 Meq Premix (Kcl 40 Me (08/12/16 17:30) Potassium Chlor 40 Meq Premix (Kcl 40 Me (08/12/16 17:30) Potassium Chlor 20 Meq Premix (Kcl 20 Me (08/12/16 17:30) Potassium Chlor 20 Meq Premix (Kcl 20 Me (08/12/16 17:30) Potassium Chlor 20 Meq Premix (Kcl 20 Me (08/12/16 17:30) Potassium Chlor 20 Meq Premix (Kcl 20 Me (08/12/16 17:30) Potassium Chlor 20 Meq Premix (Kcl 20 Me (08/12/16 17:30) Potassium Chlor 20 Meq Premix (Kcl 20 Me (08/12/16 17:30) Sodium Bicarbonate 8.4% Inj (Sodium Bica (08/12/16 17:30) Sodium Bicarbonate 8.4% Inj (Sodium Bica (08/12/16 17:30) Sodium Phosphate Inj (Sodium Phosphate I (08/12/16 17:30) Hemoglobin (Hgb) A1c (08/12/16 17:29) Basic Metabolic Panel (Bmp) (08/12/16 22:29) Basic Metabolic Panel (Bmp) (08/13/16 04:29) Basic Metabolic Panel (Bmp) (08/13/16 10:29) Basic Metabolic Panel (Bmp) (08/13/16 16:29) Magnesium (Mg) (08/12/16 22:29) Magnesium (Mg) (08/13/16 04:29) Magnesium (Mg) (08/13/16 10:29) Magnesium (Mg) (08/13/16 16:29) Phosphorus (Po4) (08/12/16 22:29) Phosphorus (Po4) (08/13/16 04:29) Phosphorus (Po4) (08/13/16 10:29) Phosphorus (Po4) (08/13/16 16:29) Beta Hydroxybutyrate (Acetone) (08/13/16 04:29) Beta Hydroxybutyrate (Acetone) (08/13/16 16:29) Labs Laboratory Tests Test 08/12/16 08/12/16 17:05 17:15 White Blood Count 8.5 TH/MM3 Red Blood Count 3.43 MIL/MM3 Hemoglobin 9.9 GM/DL Hematocrit 29.8 % Mean Corpuscular Volume 86.9 FL Mean Corpuscular Hemoglobin 28.9 PG Mean Corpuscular Hemoglobin 33.2 % Concent Red Cell Distribution Width 14.1 % Platelet Count 172 TH/MM3 Mean Platelet Volume 8.4 FL Neutrophils (%) (Auto) 86.5 % Lymphocytes (%) (Auto) 6.9 % Monocytes (%) (Auto) 5.9 % Eosinophils (%) (Auto) 0.0 % Basophils (%) (Auto) 0.7 % Neutrophils # (Auto) 7.3 TH/MM3 Lymphocytes # (Auto) 0.6 TH/MM3 Monocytes # (Auto) 0.5 TH/MM3 Eosinophils # (Auto) 0.0 TH/MM3 Basophils # (Auto) 0.1 TH/MM3 CBC Comment DIFF FINAL Differential Comment Prothrombin Time 10.9 SEC Prothromb Time International 1.0 RATIO Ratio Activated Partial 27.9 SEC Thromboplast Time Sodium Level 136 MEQ/L Potassium Level 5.2 MEQ/L Chloride Level 94 MEQ/L Carbon Dioxide Level 12.6 MEQ/L Anion Gap 29 MEQ/L Blood Urea Nitrogen 39 MG/DL Creatinine 1.83 MG/DL Estimat Glomerular Filtration 51 ML/MIN Rate Random Glucose 560 MG/DL Calcium Level 9.4 MG/DL Phosphorus Level 6.5 MG/DL Magnesium Level 2.9 MG/DL Total Bilirubin 1.0 MG/DL Aspartate Amino Transf 21 U/L (AST/SGOT) Alanine Aminotransferase 23 U/L (ALT/SGPT) Alkaline Phosphatase 116 U/L Total Protein 9.0 GM/DL Albumin 3.2 GM/DL Lipase 33 U/L B-Hydroxybutyrate 13.69 MMOL/L Blood Gas Puncture Site LT RADIAL Blood Gas Patient Temperature 98.6 Blood Gas HCO3 10 mmol/L Blood Gas Base Excess -15.8 mmol/L Blood Gas Oxygen Saturation 90 % Arterial Blood pH 7.25 Arterial Blood Partial 24 mmHg Pressure CO2 Arterial Blood Partial 85 mmHG Pressure O2 Arterial Blood Oxygen Content 18.3 Vol % Arterial Blood 3.3 % Carboxyhemoglobin Arterial Blood Methemoglobin 2.2 % Blood Gas Hemoglobin 14.4 G/DL Blood Gas Inspired Oxygen 21 % [facility] Medical Decision Making Medical Screen Exam Complete: Yes Emergency Medical Condition: Yes Interpretation(s) 1828 PM. CBC WBC 8.5. Hemoglobin 9.9 hematocrit 29.8. 86 neutrophil. Potassium 5.2. Chloride 94. Bicarbonate 12.6. Anion gap 29. BUN 39. Creatinine 1.3. GFR 51. Random glucose 560. Phosphorus 6.5. Magnesium 2.9. Beta hydroxy butyrate 13.69. ABG at room air pH 7.25. PCO2 24. PO2 85. Bicarbonate 10. Differential Diagnosis Differential diagnosis including hyperglycemia, DKA, electrolyte abnormality, dehydration. Narrative Course 35 years old male with headache body ache chest pain or abdominal pain nausea vomiting. History of diabetes with frequent episodes of DKA. Normal saline solution 1 L IV bolus. Diagnosis Primary Impression: Diabetic ketoacidosis Qualified Code: E10.10 - Diabetic ketoacidosis without coma associated with type 1 diabetes mellitus Admitting Information Admitting Physician Requests: Admit Bob Toribio MD Aug 12, 2016 17:03
[2016-08-12 17:18] LABS: AUTOMATED NEUTROPHIL # 7.3 TH/MM3 (1.8-7.7); BASOPHIL # 0.1 TH/MM3 (0-0.2); BASOPHIL % 0.7 % (0.0-2.0); HEMATOCRIT 29.8 % (39.0-51.0); HEMO FLAGS DIFF FINAL; LYMPH % 6.9 % (9.0-44.0); LYMPHOCYTE # 0.6 TH/MM3 (1.0-4.8); MEAN CELL VOLUME 86.9 FL (80.0-100.0); MEAN CORPUSCULAR HEMOGLOBIN 28.9 PG (27.0-34.0); MEAN CORPUSCULAR HGB CONC 33.2 % (32.0-36.0); MONO % 5.9 % (0.0-8.0); NEUT % 86.5 % (16.0-70.0); PLATELET COUNT 172 TH/MM3 (150-450); RED BLOOD COUNT 3.43 MIL/MM3 (4.50-5.90); RED CELL DISTRIBUTION WIDTH 14.1 % (11.6-17.2); WHITE BLOOD COUNT 8.5 TH/MM3 (4.0-11.0)
[2016-08-12 17:25] LABS: BLOOD GAS BASE EXCESS -15.8 mmol/L (-2-2); BLOOD GAS CARBOXYHEMOGLOBIN 3.3 % (0-4); BLOOD GAS HCO3 10 mmol/L (22-26); BLOOD GAS METHEMOGLOBIN 2.2 % (0-2); BLOOD GAS O2 HGB SATURATION 90 % (90-100); BLOOD GAS OXYGEN CONTENT 18.3 Vol % (12.0-20.0); BLOOD GAS PCO2 24 mmHg (38-42); BLOOD GAS PO2 85 mmHG (61-120); BLOOD GAS TOTAL HGB 14.4 G/DL (12.0-16.0); TEMP CORR TO 98.6
[2016-08-12 17:30] LABS: CRITICAL VALUE YES; DRAW SITE LT RADIAL; FIO2 21 %; NUMBER OF ARTERIAL PUNCTURES 1; STAT YES; ULNAR PULSE PRESENT
[2016-08-12] MEDS ORDERED: SODIUM PHOSPHATE INJ 15 MMOL in SODIUM CHLORIDE 0.9% INJ 100 ML IV PRN (17:30)
[2016-08-12] MEDS ORDERED: POTASSIUM CHLOR 40 MEQ PREMIX 100 ML IV PRN ×2 (17:30)
[2016-08-12] MEDS ORDERED: INSULIN HUMAN REGULAR 1,000 UNITS/10 ML VIAL IV PUSH ONE (17:30)
[2016-08-12] MEDS ORDERED: POTASSIUM CHLOR 20 MEQ PREMIX 100 ML IV PRN ×5 (17:30)
[2016-08-12] MEDS ORDERED: SODIUM BICARBONATE 8.4% SOLN 50 MEQ/50 ML VIAL IV PRN ×2 (17:30)
[2016-08-12 17:34] LABS: APTT (PATIENT) 27.9 SEC (24.3-30.1); PROTHROMBIN TIME - PATIENT 10.9 SEC (9.8-11.6)
[2016-08-12] MEDS: SODIUM CHLOR 0.9% 1000 ML INJ 1,000 ML IV SCH ×6 (18:09→23:08)
[2016-08-12 18:13] LABS: ALKALINE PHOSPHATASE 116 U/L (45-117); ALT (GPT) 23 U/L (12-78); ANION GAP 29 MEQ/L (5-15); AST (GOT) 21 U/L (15-37); BETA-HYDROXYBUTYRATE 13.69 MMOL/L (0.00-0.39); BICARBONATE 12.6 MEQ/L (21.0-32.0); BLOOD UREA NITROGEN 39 MG/DL (7-18); CHLORIDE 94 MEQ/L (98-107); GLOMERULAR FILTRATION RATE 51 ML/MIN (>89); MAGNESIUM 2.9 MG/DL (1.5-2.5); SODIUM (NA) 136 MEQ/L (136-145)
[2016-08-12 18:14] LABS: POTASSIUM 5.2 MEQ/L (3.5-5.1)
--- NOTE | 2016-08-12 18:15 | RADRPT ---
EXAM DATE/TIME: 08/12/2016 17:31 [place] COMPARISON: No previous studies available for comparison. INDICATIONS : Short of Breath, Chest Pain. MEDICAL HISTORY : Diabetes mellitus type II. SURGICAL HISTORY : None. ENCOUNTER: Initial ACUITY: 2 days PAIN SCORE: 5/10 LOCATION: Bilateral chest FINDINGS: A single view of the chest demonstrates mild basilar airspace disease most characteristic of a bronch opneumonia. No effusion. No pneumothorax the heart size normal. CONCLUSION: 1. Patchy mild basilar airspace disease most characteristic of bronchopneumonia. There is also some p eribronchial thickening. Dejon Aviles MD on August 12, 2016 at 18:12 Board Certified Radiologist. This report was verified electronically.
[2016-08-12 18:34] LABS: BLOOD, URINE NEG (NEG); COMMENT (UR) CULT NOT INDICATED; CULTURE IF INDICATED CULT NOT INDICATED; GLUCOSE,URINE 1000 mg/dL (NEG); HYALINE CAST, URINE 1 /lpf (RARE); KETONE, URINE 150 mg/dL (NEG); MUCUS URINE FEW /lpf (OCC); NITRITE,URINE NEG (NEG); SQUAMOUS EPITHELIAL CELL URINE <1 /hpf (0-5); URINE COLOR LIGHT-YELLOW (YELLW/STRAW)
--- NOTE | 2016-08-12 19:05 | HHI.HP ---
HPI Service Family Medicine Primary Care Physician No Primary Care Physician Admission Diagnosis DKA Diagnoses: International Travel<30 Days: No Contact w/Intl Traveler<30days: No Known Affected Area: No History of Present Illness Patient is a 35-year-old male with a history of diabetes and multiple admissions for DKA who presents in DKA. Patient does not have a primary care doctor. When he needs insulin, he either goes to a hospital or the pharmacy. Patient ran out of insulin 2 days ago when he dropped his insulin bottles and the glass bottles broke. Around that time, his blood sugars a few days ago were >400-500. Since that time, patient has had progressively worsening polyuria, polydipsia, weakness, fatigue, nausea, vomiting, abdominal pain. Patient also endorses cold symptoms including runny nose, sinus congestion, as well as fever, chills, cough, chest pain, shortness of breath, dyspnea on exertion. (Daniel Farmer MD R1) Review of Systems Constitutional: COMPLAINS OF: Fever, Chills Endocrine: COMPLAINS OF: Polydipsia, Polyuria Ears, nose, mouth, throat: COMPLAINS OF: Nasal discharge, Running Nose, Sinus Pain, DENIES: Throat pain Respiratory: COMPLAINS OF: Cough, Shortness of breath Cardiovascular: COMPLAINS OF: Chest pain, Dyspnea on Exertion, DENIES: Lower Extremity Edema Gastrointestinal: COMPLAINS OF: Abdominal pain, Nausea, DENIES: Constipation, Diarrhea, Vomiting Genitourinary: DENIES: Dysuria Musculoskeletal: DENIES: Joint pain, Muscle aches Integumentary: DENIES: Rash Neurologic: DENIES: Headache (Daniel Farmer MD R1) Past Family Social History Past Medical History IDDM, noncompliance with meds and follow up Past Surgical History None Reported Medications Patient reports taking 30u of Novolin 70/30 qamhs and SSI insulin NovoLog 6u with meals usually Reported Meds & Active Scripts Active Sharpsafety Sharps Contai (Parenteral Therapy Supplies) 1 Mis Mis 1 Ea .ROUTE DIRECTED Glucocom Test Strips (Blood Glucose Test Strips) 1 Whitney Whitney 1 Ea .ROUTE DIRECTED Lancets 1 Mis Mis 1 Ea .ROUTE DIRECTED Insulin Syringe/U-100/31G X 5/16" 1 ml 1 Mis Mis 1 Ea .ROUTE DIRECTED Glucocom Blood Glucose Mo W/Device (Device) 1 Kit Kit 1 Kit .ROUTE DIRECTED Novolog Inj (Insulin Aspart) 1,000 Unit/10 Ml Vial 1-9 Units SQ ACHS Max dose at bedtime:( )units; sugars less than 70,(0)units; sugars 150-199,(1) unit; sugars 200-249,(3) units; sugars 250-299,(5) units; sugars 300-349,(7) units; sugars greater than 349,(9) units Novolin 70-30 Inj (Insulin Human Isoph/Insulin Regular) 1,000 Unit/10 Ml Vial 30 Units SQ BID (Daniel Farmer MD R1) Allergies: Coded Allergies: No Known Allergies (Verified , 08/12/16) Active Ordered Medications Current Medications Medications (Trade) Dose Ordered Sig/Geovanna Route Start Time Stop Time Status Last Admin Sodium Chloride 1,000 ml @ 250 mls/hr Q4H IV 08/12/16 17:29 08/12/16 19:41 Dextrose/Sodium Chloride 1,000 ml @ 200 mls/hr Q5H IV 08/12/16 17:29 08/13/16 02:47 Insulin Human Regular 100 units/ Sodium Chloride 100 ml @ 0 mls/hr TITRATE IV 08/12/16 17:30 08/13/16 04:26 Potassium Chloride 100 ml @ 100 mls/hr Q1H PRN IV 08/12/16 17:30 Potassium Chloride 100 ml @ 50 mls/hr Q2H PRN IV 08/12/16 17:30 Potassium Chloride 100 ml @ 100 mls/hr Q1H PRN IV 08/12/16 17:30 Potassium Chloride 100 ml @ 100 mls/hr Q1H PRN IV 08/12/16 17:30 Potassium Chloride 100 ml @ 50 mls/hr Q2H PRN IV 08/12/16 17:30 Potassium Chloride 100 ml @ 50 mls/hr Q2H PRN IV 08/12/16 17:30 Potassium Chloride 100 ml @ 50 mls/hr Q2H PRN IV 08/12/16 17:30 08/12/16 23:44 (KCl 20 Meq Premix Inj) 100 ml @ 50 mls/hr Q2H PRN IV 08/12/16 17:30 (Sodium Bicarbonate 8.4% Inj) 100 meq UNSCH PRN IV 08/12/16 17:30 Sodium Bicarbonate 50 meq 50 meq UNSCH PRN IV 08/12/16 17:30 Sodium Phosphate 15 mmol/Sodium Chloride 105 ml @ 25 mls/hr UNSCH PRN IV 08/12/16 17:30 Sodium Chloride 1,000 ml @ 250 mls/hr Q4H IV 08/12/16 19:08 (D5W-NS 1000 ml Inj) 1,000 ml @ 200 mls/hr Q5H IV 08/12/16 19:08 Miscellaneous Information 1 Q361D XX 08/12/16 19:15 (Chlorhexidine 2% Cloth) 3 pack Taper DAILY@04 TOP 08/13/16 04:00 08/09/17 03:59 08/13/16 02:11 (Chlorhexidine 2% Cloth) 3 pack UNSCH PRN TOP 08/12/16 19:15 (Heparin Inj) 5,000 units Q8HR SQ 08/12/16 22:00 08/13/16 02:54 (Zofran Inj) 4 mg Q6H PRN IV 08/12/16 21:00 (Michelle-Colace) 1 tab BID PRN PO 08/12/16 21:00 Family History DM in grandma and aunt Social History She reports smoking about 1ppd for >10 years. Occasional marijuana use. Patient denies any alcohol or other illicit drug use. (Daniel Farmer MD R1) Physical Exam Vital Signs Vital Signs Date Time Temp Pulse Resp B/P Pulse Ox O2 Delivery O2 Flow Rate FiO2 08/12/16 18:00 92 18 133/83 95 Room Air 08/12/16 16:55 94 Room Air 08/12/16 16:44 97.8 94 18 149/87 94 Room Air 08/12/16 16:44 97.8 97 20 149/87 93 Physical Exam GENERAL: This is a thin patient, who seems fatigued. SKIN: No rashes, ecchymoses or lesions. Cool and dry. + Skin tenting and delayed capillary refill HEAD: Atraumatic. Normocephalic. EYES: Pupils equal round and reactive. Extraocular motions intact. ENT: Nose without bleeding, purulent drainage. Dry mucous membranes. Poor dentition. Throat without erythema, tonsillar hypertrophy or exudate. Uvula midline. Airway patent. NECK: Trachea midline. No JVD or lymphadenopathy. Supple, nontender, no meningeal signs. CARDIOVASCULAR: Regular rate and rhythm without murmurs, gallops, or rubs. RESPIRATORY: Clear to auscultation. Breath sounds equal bilaterally. No wheezes , rales, or rhonchi. GASTROINTESTINAL: Abdomen soft, non-tender, nondistended. No guarding. MUSCULOSKELETAL: Extremities without clubbing, cyanosis, or edema. No joint tenderness, effusion, or edema noted. No calf tenderness. NEUROLOGICAL: Awake and alert. Cranial nerves II through XII grossly intact. Motor and sensory grossly within normal limits. Normal speech. Laboratory Laboratory Tests Test 08/12/16 08/12/16 08/12/16 17:05 17:15 18:15 White Blood Count 8.5 Red Blood Count 3.43 Hemoglobin 9.9 Hematocrit 29.8 Mean Corpuscular Volume 86.9 Mean Corpuscular Hemoglobin 28.9 Mean Corpuscular Hemoglobin 33.2 Concent Red Cell Distribution Width 14.1 Platelet Count 172 Mean Platelet Volume 8.4 Neutrophils (%) (Auto) 86.5 Lymphocytes (%) (Auto) 6.9 Monocytes (%) (Auto) 5.9 Eosinophils (%) (Auto) 0.0 Basophils (%) (Auto) 0.7 Neutrophils # (Auto) 7.3 Lymphocytes # (Auto) 0.6 Monocytes # (Auto) 0.5 Eosinophils # (Auto) 0.0 Basophils # (Auto) 0.1 CBC Comment DIFF FINAL Differential Comment Prothrombin Time 10.9 Prothromb Time International 1.0 Ratio Activated Partial 27.9 Thromboplast Time Sodium Level 136 Potassium Level 5.2 Chloride Level 94 Carbon Dioxide Level 12.6 Anion Gap 29 Blood Urea Nitrogen 39 Creatinine 1.83 Estimat Glomerular Filtration 51 Rate Random Glucose 560 Calcium Level 9.4 Phosphorus Level 6.5 Magnesium Level 2.9 Total Bilirubin 1.0 Aspartate Amino Transf 21 (AST/SGOT) Alanine Aminotransferase 23 (ALT/SGPT) Alkaline Phosphatase 116 Total Protein 9.0 Albumin 3.2 Lipase 33 B-Hydroxybutyrate 13.69 Blood Gas Puncture Site LT RADIAL Blood Gas Patient Temperature 98.6 Blood Gas HCO3 10 Blood Gas Base Excess -15.8 Blood Gas Oxygen Saturation 90 Arterial Blood pH 7.25 Arterial Blood Partial 24 Pressure CO2 Arterial Blood Partial 85 Pressure O2 Arterial Blood Oxygen Content 18.3 Arterial Blood 3.3 Carboxyhemoglobin Arterial Blood Methemoglobin 2.2 Blood Gas Hemoglobin 14.4 Blood Gas Inspired Oxygen 21 Urine Color LIGHT-YELLOW Urine Turbidity CLEAR Urine pH 5.0 Urine Specific [place] 1.021 Urine Protein TRACE Urine Glucose (UA) 1000 Urine Ketones 150 Urine Occult Blood NEG Urine Nitrite NEG Urine Bilirubin NEG Urine Urobilinogen LESS THAN 2.0 Urine Leukocyte Esterase NEG Urine RBC 1 Urine WBC 3 Urine Squamous Epithelial <1 Cells Urine Hyaline Casts 1 Urine Mucus FEW Microscopic Urinalysis Comment CULT NOT INDICATED (Daniel Farmer MD R1) Result Diagram: 08/12/[id number]/[id number] Imaging Last Impressions Chest X-Ray 08/12/161652 Signed Impressions: Service Date/Time: Friday, August 12, 2016 17:31 - CONCLUSION: 1. Patchy mild basilar airspace disease most characteristic of bronchopneumonia. There is also some peribronchial thickening. Dejon Aviles MD Course In the emergency department, had a beta hydroxybutyrate, phosphorus, magnesium, BMP, hemoglobin A1c, sodium phosphate IV, sodium bicarbonate IV, potassium chloride IV, insulin regular IV titration protocol, insulin regular 7 units IV push bolus, D5 normal saline IV, normal saline IV bolus 2, nothing by mouth, and was admitted. (Daniel Farmer MD R1) Assessment and Plan Assessment and Plan Patient is a 35-year-old man with a history of diabetes and multiple admissions for DKA who presents in DKA. Admit for IV hydration, IV electrolyte repletion, IV insulin titration to be weaned to subcutaneous insulin. Code Status Full code Discussed Condition With Patient seen and discussed with Dr. Antonino Carranza. (Daniel Farmer MD R1) Attending Attestation THIS CASE WAS DISCUSSED WITH THE RESIDENT PHYSICIANS. I HAVE REVIEWED THE RECORD AND AGREE WITH THE ABOVE NOTE AND PLAN OF CARE WAS DISCUSSED. I HAVE AUTHORIZED THE ORDER FOR ADMISSION TO AN IN-PATIENT STATUS. (Tyson Duff MD) Problem List: (1) Diabetic ketoacidosis Status: Acute Plan: Patient admitted to ICU with labs consistent with DKA. Admit to inpatient Nothing by mouth Monitor and replete electrolytes IV fluid hydration Insulin regular IV titration protocol Zofran 4 mg IV every 6 hours when necessary for nausea Case management consult to try and establish patient with insurance, primary care provider, prevent readmission, help with discharge planning (2) Bronchopneumonia Status: Acute Plan: Patient presents with symptoms concerning for cold versus bronchitis versus pneumonia. Imaging showed bronchopneumonia. --Blood culture Ceftriaxone 1 g IV every 24 hours Azithromycin 500 mg IV every 24 hours Tylenol 1 g IV every 6 hours when necessary for pain or fever (3) DM (diabetes mellitus) Status: Chronic Plan: Patient with a history of insulin-dependent diabetes. Hemoglobin A1c (4) Tobacco use disorder Status: Acute Plan: Patient reports smoking about a pack per day. Nicotine patch transdermal daily (5) Nutrition, metabolism, and development symptoms Status: Acute Plan: Fluids: IV fluid hydration per protocol Electrolytes: Monitor and replete per protocol Nutrition: Nothing by mouth to switch to diabetic diet when anion gap closes and patient tolerating by mouth GI prophylaxis: Not currently indicated (6) No contraindication to deep vein thrombosis (DVT) prophylaxis Status: Acute Plan: Heparin 5000 units subcutaneous every 8 hours (Daniel Farmer MD R1) Physician Certification 2 Midnight Certification Type: Admission for Inpatient Services Order for Inpatient Services The services are ordered in accordance with Medicare regulations or non- Medicare payer requirements, as applicable. In the case of services not specified as inpatient-only, they are appropriately provided as inpatient services in accordance with the 2-midnight benchmark. Estimated LOS (days): 2 2 days is the estimated time the patient will need to remain in the hospital, assuming treatment plan goals are met and no additional complications. Post-Hospital Plan: Home (Daniel Farmer MD R1) Problem Qualifiers (1) Diabetic ketoacidosis: Qualified Code: E10.10 - Diabetic ketoacidosis without coma associated with type 1 diabetes mellitus Daniel Farmer MD R1 Aug 12, 2016 19:05 Tyson Duff MD Aug 13, 2016 12:07 Post-Hospital Plan: Home Problem Qualifiers (1) Diabetic ketoacidosis: Qualified Code: E10.10 - Diabetic ketoacidosis without coma associated with type 1 diabetes mellitus Daniel Farmer MD R1 Aug 12, 2016 19:05
[2016-08-12] MEDS: DEXT 5%-NACL 0.9% 1000 ML INJ 1,000 ML IV SCH ×3 (19:08→22:57)
[2016-08-12] MEDS ORDERED: CHLORHEXIDINE GLUCONATE 2 % 1 PACK (2 CLOTHS) TOP PRN (19:15)
[2016-08-12] MEDS ORDERED: MISCELLANEOUS NURSING INFORMATION XX SCH (19:15)
[2016-08-12] MEDS: INSULIN REGULAR (IV INFUSION) 100 UNITS in SODIUM CHLORIDE 0.9% INJ 99 ML IV SCH (19:42)
[2016-08-12 19:55] LABS: AMPHETAMINE, URINE NEG (NEG); BARBITURATES, URINE NEG (NEG); COCAINE, URINE NEG (NEG)
[2016-08-12] MEDS ORDERED: DOCUSATE SODIUM 50 MG/SENNA 8.6 MG TAB PO PRN (21:00)
[2016-08-12] MEDS ORDERED: ONDANSETRON HCL 4 MG/2 ML VIAL IV PRN (21:00)
[2016-08-12 21:13] LABS: BETA-HYDROXYBUTYRATE 6.91 MMOL/L (0.00-0.39)
[2016-08-12 21:18] LABS: BICARBONATE 14.2 MEQ/L (21.0-32.0); MAGNESIUM 2.3 MG/DL (1.5-2.5); POTASSIUM 3.9 MEQ/L (3.5-5.1)
[2016-08-12] MEDS: HEPARIN SODIUM - SQ 10,000 UNITS/ML VIAL SQ SCH (21:35)
[2016-08-12] MEDS: POTASSIUM CHLOR 20 MEQ PREMIX 100 ML IV PRN ×2 (21:37→23:44)
[2016-08-13] VITALS (10 sets, daily range): BP systolic 120–145; BP diastolic 57–86; PULSE 99–117; RESP 16–17; TEMP 97.9–101; O2SAT 90–100
[2016-08-13] MEDS: DEXT 5%-NACL 0.9% 1000 ML INJ 1,000 ML IV SCH ×3 (00:08→02:47)
[2016-08-13] MEDS: SODIUM CHLOR 0.9% 1000 ML INJ 1,000 ML IV SCH ×6 (01:29→11:43)
[2016-08-13] MEDS: HEPARIN SODIUM - SQ 10,000 UNITS/ML VIAL SQ SCH ×3 (02:54→22:20)
[2016-08-13] MEDS ORDERED: CHLORHEXIDINE GLUCONATE 2 % 1 PACK (2 CLOTHS) TOP SCH (04:00)
[2016-08-13] MEDS: INSULIN REGULAR (IV INFUSION) 100 UNITS in SODIUM CHLORIDE 0.9% INJ 99 ML IV SCH (04:26)
[2016-08-13] MEDS ORDERED: cefTRIAXone INJ 1,000 MG in SODIUM CHLORIDE 0.9% INJ 100 ML IV SCH (06:45)
[2016-08-13] MEDS ORDERED: ACETAMINOPHEN 1000 MG/100 ML VIAL IV PRN (06:45)
[2016-08-13 06:54] LABS: BETA-HYDROXYBUTYRATE 0.17 MMOL/L (0.00-0.39); BICARBONATE 27.2 MEQ/L (21.0-32.0); MAGNESIUM 2.1 MG/DL (1.5-2.5); POTASSIUM 3.7 MEQ/L (3.5-5.1)
[2016-08-13] MEDS ORDERED: AZITHROMYCIN INJ 500 MG in SODIUM CHLOR 0.9% 250 ML INJ 250 ML IV SCH (08:00)
[2016-08-13] MEDS ORDERED: INSULIN DETEMIR 100 UNITS/ML VIAL SQ SCH (09:00)
[2016-08-13] MEDS: NICOTINE 21 MG/24 HR PATCH TD SCH (10:04)
[2016-08-13 11:04] LABS: BICARBONATE 23.9 MEQ/L (21.0-32.0); POTASSIUM 4.2 MEQ/L (3.5-5.1)
[2016-08-13] MEDS: CEFEPIME INJ 2,000 MG in SODIUM CHLORIDE 0.9% INJ 100 ML IV SCH ×2 (11:43→18:31)
--- NOTE | 2016-08-13 12:07 | HHI.FPPN ---
Subjective Remarks No acute events overnight and patient continues to feel somewhat fatigued. He also feels very hungry and states that he ordered food an hour ago and is waiting to eat. He denies any issues such as shortness of breath or chest pain , or palpitations. He did have a recorded fever overnight of 101F and still feels somewhat feverish subjectively. He did require nasal cannula oxygen overnight and is currently on 6 L satting 100% In summary this is a 35-year-old male with a long history of diabetes and multiple admissions for DKA presenting to the hospital in [place]. He takes NPH insulin twice daily along with sliding scale insulin with meals but states that he ran out of his insulin approximately 2 days ago after dropping his insulin bottles and therefore has not taken insulin for 2 days. He says that his blood sugars were consistently over 500 and he progressively developed polyuria, polydipsia, fatigue, nausea, vomiting, and abdominal pain. He also endorses upper respiratory symptoms including chest congestion and cough productive of clear to yellow sputum that have been going on for the last 4-5 days. With this, he has had associated fevers and chills, rhinorrhea, sinus congestion, and mild shortness of breath. Past Medical History IDDM, noncompliance with meds and follow up Past Surgical History None Family History DM in grandma and aunt Social History She reports smoking about 1ppd for >10 years. Occasional marijuana use. Patient denies any alcohol or other illicit drug use Objective Vitals Vital Signs Date Time Temp Pulse Resp B/P Pulse Ox O2 Delivery O2 Flow Rate FiO2 08/13/16 08:54 100 Nasal Cannula 6.00 08/13/16 04:30 92 Nasal Cannula 5.00 08/13/16 03:00 101.0 117 17 123/69 93 08/13/16 00:47 99.2 99 16 143/86 90 08/12/16 23:46 97.8 89 17 150/87 99 Room Air 08/12/16 23:00 88 18 144/80 99 Room Air 08/12/16 21:45 86 18 144/86 99 Room Air 08/12/16 20:53 86 17 132/77 99 Room Air 08/12/16 19:30 16 99 Room Air 08/12/16 19:30 97.8 84 16 146/86 99 Room Air 08/12/16 19:30 84 16 99 Room Air 08/12/16 18:00 92 18 133/83 95 Room Air 08/12/16 16:55 94 Room Air 08/12/16 16:44 97.8 94 18 149/87 94 Room Air 08/12/16 16:44 97.8 97 20 149/87 93 I/O 08/12/16 08/12/16 08/12/16 08/13/16 08/13/16 08/13/16 07:00 15:00 23:00 07:00 15:00 23:00 Intake Total 950 ml Output Total 700 ml 650 ml Balance -700 ml 300 ml Intake IV Total 950 ml Output Urine Total 700 ml 650 ml # Voids 1 Result Diagram: 08/12/16 1705 08/13/16 1011 Imaging Last 48 hours Impressions Chest X-Ray 08/12/16 1653 Signed Impressions: Service Date/Time: Friday, August 12, 2016 17:31 - CONCLUSION: 1. Patchy mild basilar airspace disease most characteristic of bronchopneumonia. There is also some peribronchial thickening. Dejon Aviles MD Objective Remarks GENERAL: Thin Amina male, lying in bed somewhat lethargic. SKIN: No rashes, ecchymoses or lesions. Skin appears somewhat dry with tenting HEAD: Poor dentition, no obvious injuries EYES: Pupils equal round and reactive. Extraocular motions intact. CARDIOVASCULAR: Tachycardic but regular rhythm without murmurs, gallops, or rubs. RESPIRATORY: Bilateral lower lobe rhonchi (right worse than left) with occasional expiratory wheezes GASTROINTESTINAL: Abdomen soft, non-tender, nondistended. No guarding. MUSCULOSKELETAL: Extremities without clubbing, cyanosis, or edema. NEUROLOGICAL: Awake and alert. Normal speech. Procedures DKA protocol A/P Assessment and Plan Patient is a 35-year-old man with a history of diabetes and multiple admissions for DKA who presents in DKA. Problem List: (1) Diabetic ketoacidosis Status: Acute Plan: Diabetic ketoacidosis on arrival - admitted to the [facility] for DKA protocol Secondary to noncompliance with insulin and possible pneumonia treated as below Received 2 L normal saline bolus in the emergency department and started on insulin drip - Patient currently being transitioned from insulin drip to subcutaneous insulin - Started on Levemir 6 units subcutaneous every 12 hours - Attempt to start diet as morning - Monitor BMP every 6 hours evaluate for reopening of anion gap - Replenish phosphorus as this is low at 1.6 Labs on arrival: ABG - pH of 7.25, PCO2 of 24, bicarbonate of 10 - We will obtain repeat VBG to evaluate improvement of acidosis Beta hydroxybutyrate 13.69 - 6.91 - 0.17 Tox screen negative Less than 0.02 Anion gap 29 - 21 - 6 - 10 Continue IV fluid hydration Zofran 4 mg IV every 6 hours when necessary for nausea Case management consult to try and establish patient with insurance, primary care provider, prevent readmission, help with discharge planning (2) Bronchopneumonia Status: Acute Plan: Chest x-ray with patchy mild bibasilar airspace disease most characteristic of bronchopneumonia - Patient has had symptoms for 4-5 days Concern for healthcare associated pneumonia as patient was hospitalized twice in the last 30 days Antibiotic coverage as below: Cefepime 2000 mg IV every 8 Azithromycin 500 mg IV every 24 Blood cultures ordered and pending Urine Legionella antigen pending Breathing treatments with duo nebs every 6 hours as needed while awake Supple mental oxygen as needed (3) DM (diabetes mellitus) Status: Chronic Plan: Patient with a history of insulin-dependent diabetes. Hemoglobin A1c ordered and pending -Case management consulted to assist with medications upon discharge Patient currently on DKA protocol, will transition back to home insulin regimen once tolerating by mouth (4) Tobacco use disorder Status: Acute Plan: Patient reports smoking about a pack per day. Nicotine patch transdermal daily (5) Nutrition, metabolism, and development symptoms Status: Acute Plan: Fluids: IV fluid hydration per protocol Electrolytes: Monitor and replete per protocol Nutrition: Transitioning to diabetic diet today GI prophylaxis: Not currently indicated (6) No contraindication to deep vein thrombosis (DVT) prophylaxis Status: Acute Plan: Heparin 5000 units subcutaneous every 8 hours Problem Qualifiers (1) Diabetic ketoacidosis: Qualified Code: E10.10 - Diabetic ketoacidosis without coma associated with type 1 diabetes mellitus Tyson Duff MD Aug 13, 2016 12:07
[2016-08-13 12:12] LABS: BLOOD GAS VENOUS BASE EXCESS -1.6 mmol/L (-2-2); BLOOD GAS VENOUS HCO3 22 mmol/L (22-26); BLOOD GAS VENOUS O2 CONTENT 16.2 Vol % (9.0-17.0); BLOOD GAS VENOUS O2 HGB SAT 89 % (70-76); BLOOD GAS VENOUS PCO2 33 mmHg (44-48); BLOOD GAS VENOUS PO2 61 mmHg (35-40); BLOOD GAS VENOUS pH 7.44 (7.360-7.400); CRITICAL VALUE NO; TEMP CORR TO 98.6
[2016-08-13 12:13] LABS: DRAW SITE LINE; LITER FLOW 4 L/M; OXYGEN DEVICE NASAL CANNULA
[2016-08-13] MEDS: INSULIN ASPART SUPPLEMENTAL SCALE SQ SCH ×3 (12:14→22:18)
[2016-08-13] MEDS: INSULIN ASPART 1,000 UNITS/10 ML VIAL SQ SCH ×2 (12:14→16:39)
[2016-08-13] MEDS ORDERED: GLUCAGON 1 MG/ML VIAL OTHER PRN (13:00)
[2016-08-13] MEDS ORDERED: DEXTROSE 50% IN WATER 50 ML VIAL(D50) IV PUSH PRN (13:00)
[2016-08-13 13:17] LABS: BICARBONATE 24.3 MEQ/L (21.0-32.0); POTASSIUM 3.9 MEQ/L (3.5-5.1)
[2016-08-13 13:25] LABS: HEMOGLOBIN A1a 1.8 %; HEMOGLOBIN Ao 67.7 %; HEMOGLOBIN F 4.3 %; HEMOGLOBIN LA1C 3.5 %; HEMOGLOBIN P3 6.6 %
[2016-08-13] MEDS: RESP: ALBUTEROL 2.5 MG/IPRATROPIUM 0.5 MG NEB (SCH) NEB ×2 (14:24→20:04)
[2016-08-13] MEDS ORDERED: CALCIUM CARBONATE 500 MG CHEWABLE TAB CHEW ONE (20:30)
[2016-08-13] MEDS ORDERED: CALCIUM ACETATE 667 MG CAP PO ONE (20:30)
[2016-08-13] MEDS ORDERED: POTASSIUM PHOSPHATE MONOBASIC 500 MG TAB PO ONE (20:30)
[2016-08-13] MEDS ORDERED: POTASSIUM PHOSPHATE/SODIUM PHOSPHATE 250 MG TAB PO ONE (20:45)
[2016-08-13] MEDS: CALCIUM CARBONATE 500 MG CHEWABLE TAB CHEW SCH (22:18)
[2016-08-13] MEDS: REMOVE OLD NICODERM (NICOTINE) PATCH TD SCH (22:19)
[2016-08-14] VITALS (9 sets, daily range): BP systolic 96–134; BP diastolic 64–87; PULSE 82–94; RESP 16–20; TEMP 97.4–98.8; O2SAT 93–98
[2016-08-14] MEDS: POTASSIUM PHOSPHATE/SODIUM PHOSPHATE 250 MG TAB PO SCH ×4 (00:35→21:32)
[2016-08-14] MEDS ORDERED: INSULIN ASPART 1,000 UNITS/10 ML VIAL SQ ONE (04:15)
[2016-08-14] MEDS: CEFEPIME INJ 2,000 MG in SODIUM CHLORIDE 0.9% INJ 100 ML IV SCH ×3 (04:21→19:03)
[2016-08-14] MEDS: HEPARIN SODIUM - SQ 10,000 UNITS/ML VIAL SQ SCH ×3 (06:00→21:32)
[2016-08-14] MEDS: INSULIN ASPART SUPPLEMENTAL SCALE SQ SCH ×4 (06:20→21:01)
[2016-08-14 06:58] LABS: BETA-HYDROXYBUTYRATE 0.53 MMOL/L (0.00-0.39); BICARBONATE 26.9 MEQ/L (21.0-32.0); POTASSIUM 3.4 MEQ/L (3.5-5.1)
[2016-08-14] MEDS: NICOTINE 21 MG/24 HR PATCH TD SCH (07:50)
[2016-08-14] MEDS: AZITHROMYCIN 250 MG TAB PO SCH (07:52)
[2016-08-14] MEDS: CALCIUM ACETATE 667 MG CAP PO SCH ×3 (07:52→17:45)
[2016-08-14] MEDS: CALCIUM CARBONATE 500 MG CHEWABLE TAB CHEW SCH ×2 (07:52→20:59)
[2016-08-14] MEDS ORDERED: INSULIN HUMAN NPH/R 70/30 1,000 UNITS/10 ML VIAL SQ SCH (08:00)
[2016-08-14] MEDS: INSULIN ASPART 1,000 UNITS/10 ML VIAL SQ SCH ×3 (08:28→17:45)
[2016-08-14] MEDS: RESP: ALBUTEROL 2.5 MG/IPRATROPIUM 0.5 MG NEB (SCH) NEB ×3 (08:30→20:23)
[2016-08-14] MEDS ORDERED: POTASSIUM CHLORIDE 10 MEQ CONTROLLED RELEASE TAB PO ONE (09:45)
[2016-08-14 10:23] LABS: CALCIUM-PROTEIN CORRECTED 8.2 MG/DL (8.5-10.1)
--- NOTE | 2016-08-14 11:16 | HHI.FPPN ---
Subjective Remarks Patient seen and examined this morning. Oxygen saturation overnight ranging from 9094, patient requiring nasal cannula at 4 L. Patient reports feeling significantly improved this morning. Denies chest pain, nausea, vomiting, difficulty breathing, abdominal pain, calf pain. His girlfriend is present at bedside and reports that they both have been experiencing upper respiratory infection symptoms for over the past month. At home patient uses 30 units of NovoLog 70/30 insulin at night, and will use 6 units of sliding scale insulin during the day. [facility] the past. The case operator has already been in to speak with the patient and has made arrangements for him to get his medications and follow-up in the community clinic once he is discharged. (Nabil Carranza MD R2) Objective Vitals Vital Signs Date Time Temp Pulse Resp B/P Pulse Ox O2 Delivery O2 Flow Rate FiO2 08/14/16 08:32 96 Nasal Cannula 4.00 08/14/16 08:00 97.8 82 18 129/87 95 08/14/16 04:00 97.4 82 18 129/77 98 08/14/16 00:00 98.8 86 18 96/64 93 08/13/16 20:07 92 Nasal Cannula 4.00 08/13/16 20:00 98.1 99 16 145/57 94 08/13/16 16:00 97.9 101 16 120/70 90 08/13/16 12:00 100 08/13/16 12:00 98.1 100 17 120/70 93 I/O 08/13/16 08/13/16 08/13/16 08/14/16 08/14/16 08/14/16 07:00 15:00 23:00 07:00 15:00 23:00 Intake Total 950 ml 2197 ml 480 ml 2377 ml Output Total 650 ml 1100 ml 600 ml 600 ml Balance 300 ml 1097 ml -120 ml 1777 ml Intake Oral 720 ml 480 ml 720 ml IV Total 950 ml 1477 ml 1657 ml Output Urine Total 650 ml 1100 ml 600 ml 600 ml (Nabil Carranza MD R2) Result Diagram: 08/12/16 1705 08/14/16 0520 Objective Remarks GENERAL: Thin Amina male, lying in bed somewhat lethargic. SKIN: No rashes, ecchymoses or lesions. HEENT: Moist mucous membranes. Poor dentition, no obvious injuries. Pupils equal round and reactive. Extraocular motions intact. CARDIOVASCULAR: Tachycardic but regular rhythm without murmurs, gallops, or rubs. RESPIRATORY: Bilateral lower lobe rhonchi (right worse than left) with occasional expiratory wheezes GASTROINTESTINAL: Abdomen soft, non-tender, nondistended. No guarding. MUSCULOSKELETAL: Extremities without clubbing, cyanosis, or edema. NEUROLOGICAL: Awake and alert. Normal speech. Procedures DKA protocol (Nabil Carranza MD R2) A/P Assessment and Plan Patient is a 35-year-old man with a history of diabetes and multiple admissions for DKA who presents in DKA. Discharge Planning Anticipate discharge once blood sugars are under control and patient was transitioned to oral antibiotics to treat pneumonia. (Nabil Carranza MD R2) Attending Attestation Patient examined and case discussed with resident physician I have read the above note and agree with the assessment/plan as discussed with me I was involved in all medical decision making for this patient Tyson Duff M.D. (Tyson Duff MD) Problem List: (1) Diabetic ketoacidosis Status: Acute Plan: Resolved On admission patient presented with DKA, secondary to noncompliance with insulin and possible pneumonia treated as below - Patient transitioned to subcutaneous insulin - NovoLog 6 units TIDAC - NovoLin 70/30 increased from 30 units twice a day to 40 units. - Low dose sliding scale - Diet as below - Repeat VBG improved from her ABG on admission, patient on nasal cannula 4 L. PH of 7.44, PCO2 33, PO2 61, normal HCO3, O2 saturation 89. - Beta hydroxybutyrate 0.53 this morning. - Zofran 4 mg IV every 6 hours when necessary for nausea - Case management consult to try and establish patient with insurance, primary care provider, prevent readmission, help with discharge planning (2) Bronchopneumonia Status: Acute Plan: Chest x-ray with patchy mild bibasilar airspace disease most characteristic of bronchopneumonia -Patient now reports having had upper respiratory infection symptoms for the past month Concern for healthcare associated pneumonia as patient was hospitalized twice in the last 30 days Antibiotic coverage as below: Cefepime 2000 mg IV every 8 Azithromycin 500 mg PO every 24 Blood cultures ordered and pending Urine Legionella antigen negative Breathing treatments with duo nebs every 6 hours as needed while awake Supple supplemental oxygen as needed (3) DM (diabetes mellitus) Status: Chronic Plan: Patient with a history of insulin-dependent diabetes. Hemoglobin A1c 16.3, blood sugars clearly not well-controlled with current home insulin regimen Case management consulted to assist with medications upon discharge (4) Tobacco use disorder Status: Acute Plan: Patient reports smoking about a pack per day. Nicotine patch transdermal daily (5) Nutrition, metabolism, and development symptoms Status: Acute Plan: Fluids: None Electrolytes: Monitor and replete per protocol Nutrition: 1800 kcal ADA diet GI prophylaxis: Not currently indicated (6) No contraindication to deep vein thrombosis (DVT) prophylaxis Status: Acute Plan: Heparin 5000 units subcutaneous every 8 hours (Nabil Carranza MD R2) Problem Qualifiers (1) Diabetic ketoacidosis: Qualified Code: E10.10 - Diabetic ketoacidosis without coma associated with type 1 diabetes mellitus Nabil Carranza MD R2 Aug 14, 2016 11:16 Tyson Duff MD Aug 14, 2016 16:51
[2016-08-14] MEDS ORDERED: CALCIUM CARBONATE 1.25 GM (CA 500 MG) TAB PO ONE (11:45)
[2016-08-14 12:47] LABS: STAT NO
[2016-08-14] MEDS: INSULIN HUMAN NPH/R 70/30 1,000 UNITS/10 ML VIAL SQ SCH (17:43)
[2016-08-14] MEDS: REMOVE OLD NICODERM (NICOTINE) PATCH TD SCH (21:02)
[2016-08-15] VITALS: BP 120/65; PULSE 82; RESP 17; TEMP 97.8; O2SAT 97
[2016-08-15] MEDS: CEFEPIME INJ 2,000 MG in SODIUM CHLORIDE 0.9% INJ 100 ML IV SCH ×2 (03:00→11:40)
[2016-08-15 04:00] VITALS: BP 133/86; PULSE 81; RESP 16; TEMP 98.4; O2SAT 94
[2016-08-15] MEDS: POTASSIUM PHOSPHATE/SODIUM PHOSPHATE 250 MG TAB PO SCH ×2 (05:36→11:40)
[2016-08-15] MEDS: HEPARIN SODIUM - SQ 10,000 UNITS/ML VIAL SQ SCH ×2 (05:37→11:41)
[2016-08-15] MEDS: INSULIN ASPART SUPPLEMENTAL SCALE SQ SCH ×2 (05:39→11:00)
[2016-08-15 08:00] VITALS: BP 131/82; PULSE 81; RESP 18; TEMP 97.6; O2SAT 97
[2016-08-15 08:12] VITALS: O2SAT 98
[2016-08-15] MEDS: RESP: ALBUTEROL 2.5 MG/IPRATROPIUM 0.5 MG NEB (SCH) NEB ×2 (08:12→13:54)
[2016-08-15] MEDS: INSULIN ASPART 1,000 UNITS/10 ML VIAL SQ SCH (08:36)
[2016-08-15] MEDS: CALCIUM CARBONATE 500 MG CHEWABLE TAB CHEW SCH (08:37)
[2016-08-15] MEDS: AZITHROMYCIN 250 MG TAB PO SCH (08:37)
[2016-08-15] MEDS: INSULIN HUMAN NPH/R 70/30 1,000 UNITS/10 ML VIAL SQ SCH (08:37)
[2016-08-15] MEDS: NICOTINE 21 MG/24 HR PATCH TD SCH (08:37)
[2016-08-15] MEDS: CALCIUM ACETATE 667 MG CAP PO SCH ×2 (08:37→11:40)
[2016-08-15 10:28] LABS: AUTOMATED NEUTROPHIL # 3.3 TH/MM3 (1.8-7.7); BASOPHIL % 0.7 % (0.0-2.0); EOSINOPHIL % 0.9 % (0.0-4.0); HEMATOCRIT 37.8 % (39.0-51.0); HEMO FLAGS DIFF FINAL; LYMPH % 19.1 % (9.0-44.0); LYMPHOCYTE # 0.9 TH/MM3 (1.0-4.8); MEAN CELL VOLUME 82.4 FL (80.0-100.0); MEAN CORPUSCULAR HEMOGLOBIN 28.1 PG (27.0-34.0); MEAN CORPUSCULAR HGB CONC 34.2 % (32.0-36.0); MONO % 7.2 % (0.0-8.0); NEUT % 72.1 % (16.0-70.0); PLATELET COUNT 222 TH/MM3 (150-450); RED BLOOD COUNT 4.59 MIL/MM3 (4.50-5.90); RED CELL DISTRIBUTION WIDTH 13.5 % (11.6-17.2); WHITE BLOOD COUNT 4.6 TH/MM3 (4.0-11.0)
--- NOTE | 2016-08-15 10:34 | HHI.FPPN ---
Subjective Remarks Acute events overnight. Afebrile vital signs stable. Patient denies any polyuria , polydipsia, fatigue, weakness, dizziness, nausea, vomiting, abdominal pain. Patient still endorses a cough productive of yellow sputum, but reports that his cough is getting better. Patient denies any fever, chills, chest pain, shortness of breath. Patient feels comfortable going home today. (Daniel Farmer MD R1) Objective Vitals Vital Signs Date Time Temp Pulse Resp B/P Pulse Ox O2 Delivery O2 Flow Rate FiO2 08/15/16 08:12 98 Nasal Cannula 1.00 08/15/16 08:00 97.6 81 18 131/82 97 08/15/16 04:00 98.4 81 16 133/86 94 08/15/16 00:00 97.8 82 17 120/65 97 08/14/16 20:25 95 Nasal Cannula 1.00 08/14/16 20:00 98.4 90 16 124/76 96 08/14/16 18:05 98.4 94 18 134/86 98 08/14/16 16:00 98.1 84 20 129/81 98 08/14/16 12:00 97.4 89 18 121/74 95 I/O 08/14/16 08/14/16 08/14/16 08/15/16 08/15/16 08/15/16 07:00 15:00 23:00 07:00 15:00 23:00 Intake Total 2377 ml 720 ml 600 ml 240 ml Output Total 600 ml 550 ml 200 ml Balance 1777 ml 720 ml 50 ml 40 ml Intake Oral 720 ml 720 ml 600 ml 240 ml IV Total 1657 ml Output Urine Total 600 ml 550 ml 200 ml # Voids 2 # Bowel Movements 0 (Daniel Farmer MD R1) Result Diagram: 08/12/16 1705 08/14/16 0548 Imaging Last Impressions Chest X-Ray 08/12/16 1653 Signed Impressions: Service Date/Time: Friday, August 12, 2016 17:31 - CONCLUSION: 1. Patchy mild basilar airspace disease most characteristic of bronchopneumonia. There is also some peribronchial thickening. Dejon Aviles MD Objective Remarks GENERAL: Thin Amina male, lying in bed in no acute distress. SKIN: No rashes, ecchymoses or lesions. HEENT: Moist mucous membranes. Poor dentition, no obvious injuries. Pupils equal round and reactive. Extraocular motions intact. CARDIOVASCULAR: Regular rate and rhythm without murmurs, gallops, or rubs. RESPIRATORY: Bilateral lower lobe rhonchi (right worse than left) with occasional expiratory wheezes, which seem to be improving GASTROINTESTINAL: Abdomen soft, non-tender, nondistended. No guarding. MUSCULOSKELETAL: Extremities without clubbing, cyanosis, or edema. NEUROLOGICAL: Awake and alert. Normal speech. Procedures DKA protocol (Daniel Farmer MD R1) A/P Assessment and Plan Patient is a 35-year-old man with a history of diabetes and multiple admissions for DKA who presents in DKA also presents with a few day history of cough and cold symptoms and chest x-ray concerning for bronchopneumonia. Discharge Planning Anticipate discharge once blood sugars are under control and patient can transition to oral antibiotics to treat pneumonia, likely discharge today. ( Daniel Farmer MD R1) Attending Attestation Pt. examined and cased discussed with resident physician I have read the above note and agree with the assessment/plan as discussed with me I was involved in all medical decision making for this patient Tyson Duff MD (Tyson Duff MD) Problem List: (1) Diabetic ketoacidosis Status: Acute Plan: Resolved On admission patient presented with DKA, secondary to noncompliance with insulin and possible pneumonia treated as below. - Patient transitioned to subcutaneous insulin - NovoLog 8 units TIDAC increased from 6 units - NovoLin 70/30 40 units twice a day - Low dose sliding scale - Diet as below - Zofran 4 mg IV every 6 hours when necessary for nausea - Case management consult to try and establish patient with insurance, primary care provider, prevent readmission, help with discharge planning. Patient has a blue card, which will on 08/24/16. Patient needs to fill out paperwork to get a green card. Plan to follow-up with Dr. Bates. We'll emphasize importance of follow-up. (2) Bronchopneumonia Status: Acute Plan: Chest x-ray with patchy mild bibasilar airspace disease most characteristic of bronchopneumonia -Patient now reports having had upper respiratory infection symptoms for the past month Concern for healthcare associated pneumonia as patient was hospitalized twice in the last 30 days. However, no concern for ventilator associated pneumonia. No need for MRSA coverage. Antibiotic coverage as below: Cefepime 2000 mg IV every 8 hours started 08/13/16. Today is day 3 of antibiotic treatment. Azithromycin 500 mg PO every 24h started 08/14/16. Today is day 2 of antibiotic treatment. Plan to discharge patient on Levaquin 500 mg by mouth daily for a total of 14 days of antibiotic treatment. Thus, will prescribe 12 more pills of Levaquin. Blood cultures ordered and pending Urine Legionella antigen negative Breathing treatments with duo nebs every 6 hours as needed while awake Supple supplemental oxygen as needed (3) DM (diabetes mellitus) Status: Chronic Plan: Patient with a history of insulin-dependent diabetes. Hemoglobin A1c 16.3, blood sugars clearly not well-controlled with current home insulin regimen Case management consulted to assist with medications upon discharge (4) Tobacco use disorder Status: Acute Plan: Patient reports smoking about a pack per day. Nicotine patch transdermal daily (5) Nutrition, metabolism, and development symptoms Status: Acute Plan: Fluids: None Electrolytes: Monitor and replete per protocol Nutrition: 1800 kcal ADA diet GI prophylaxis: Not currently indicated (6) No contraindication to deep vein thrombosis (DVT) prophylaxis Status: Acute Plan: Heparin 5000 units subcutaneous every 8 hours (Daniel Farmer MD R1) Problem Qualifiers (1) Diabetic ketoacidosis: Qualified Code: E10.10 - Diabetic ketoacidosis without coma associated with type 1 diabetes mellitus Daniel Farmer MD R1 Aug 15, 2016 10:34 Tyson Duff MD Aug 15, 2016 20:30
[2016-08-15 10:55] LABS: BETA-HYDROXYBUTYRATE 0.27 MMOL/L (0.00-0.39); BICARBONATE 28.8 MEQ/L (21.0-32.0); CALCIUM-PROTEIN CORRECTED 8.7 MG/DL (8.5-10.1); POTASSIUM 3.3 MEQ/L (3.5-5.1)
[2016-08-15 12:00] VITALS: BP 139/85; PULSE 87; RESP 18; TEMP 98.2; O2SAT 95
[2016-08-15] MEDS ORDERED: INSULIN ASPART 1,000 UNITS/10 ML VIAL SQ SCH (12:00)
[2016-08-15] MEDS ORDERED: NOVOLOGP2 SQ (12:09)
[2016-08-15] MEDS ORDERED: NOVO7030P2 SQ (12:09)
[2016-08-15] MEDS ORDERED: LEVA500T PO (12:09)
--- NOTE | 2016-08-15 12:10 | HHI.DCPOC ---
Discharge Care Plan Diagnosis: (1) Bronchopneumonia (2) Diabetic ketoacidosis Goals to Promote Your Health * To prevent worsening of your condition and complications, please take medications as prescribed and follow up with Dr. Bates. * To maintain your health at the optimal level, please quit smoking, please take medications as prescribed and follow up with Dr. Bates. Directions to Meet Your Goals Take your medications as prescribed Follow your dietary instruction Follow activity as directed Keep your appointments as scheduled Take your immunizations and boosters as scheduled If your symptoms worsen call your PCP, if no PCP go to Urgent Care Center or Emergency Room Smoking is Dangerous to Your Health. Avoid second hand smoke Call the 24-hour hour crisis hotline for domestic abuse at Daniel Farmer MD R1 Aug 15, 2016 12:10
[2016-08-15] MEDS ORDERED: INSU1MIS15 (12:40)
--- NOTE | 2016-09-24 15:39 | HHI.DS ---
Discharge Summary Admission Date Aug 12, 2016 at 18:46 Admitting Diagnosis DKA (1) Diabetic ketoacidosis Diagnosis: Principal Plan: Resolved On admission patient presented with DKA, secondary to noncompliance with insulin and possible pneumonia treated as below. - Patient transitioned to subcutaneous insulin - NovoLog 8 units TIDAC increased from 6 units - NovoLin 70/30 40 units twice a day - Low dose sliding scale - Diet as below - Zofran 4 mg IV every 6 hours when necessary for nausea - Case management consult to try and establish patient with insurance, primary care provider, prevent readmission, help with discharge planning. Patient has a blue card, which will on 08/24/16. Patient needs to fill out paperwork to get a green card. Plan to follow-up with Dr. Bates. We'll emphasize importance of follow-up. (2) Bronchopneumonia Diagnosis: Principal Plan: Chest x-ray with patchy mild bibasilar airspace disease most characteristic of bronchopneumonia -Patient now reports having had upper respiratory infection symptoms for the past month Concern for healthcare associated pneumonia as patient was hospitalized twice in the last 30 days. However, no concern for ventilator associated pneumonia. No need for MRSA coverage. Antibiotic coverage as below: Cefepime 2000 mg IV every 8 hours started 08/13/16. Today is day 3 of antibiotic treatment. Azithromycin 500 mg PO every 24h started 08/14/16. Today is day 2 of antibiotic treatment. Plan to discharge patient on Levaquin 500 mg by mouth daily for a total of 14 days of antibiotic treatment. Thus, will prescribe 12 more pills of Levaquin. Blood cultures ordered and pending Urine Legionella antigen negative Breathing treatments with duo nebs every 6 hours as needed while awake Supple supplemental oxygen as needed (3) DM (diabetes mellitus) Diagnosis: Secondary Plan: Patient with a history of insulin-dependent diabetes. Hemoglobin A1c 16.3, blood sugars clearly not well-controlled with current home insulin regimen Case management consulted to assist with medications upon discharge (4) Tobacco use disorder Diagnosis: Secondary Plan: Patient reports smoking about a pack per day. Nicotine patch transdermal daily (5) Nutrition, metabolism, and development symptoms Diagnosis: Secondary Plan: Fluids: None Electrolytes: Monitor and replete per protocol Nutrition: 1800 kcal ADA diet GI prophylaxis: Not currently indicated (6) No contraindication to deep vein thrombosis (DVT) prophylaxis Diagnosis: Secondary Plan: Heparin 5000 units subcutaneous every 8 hours Procedures DKA protocol Brief History Patient is a 35-year-old male with a history of diabetes and multiple admissions for DKA who presents in DKA. Patient does not have a primary care doctor. When he needs insulin, he either goes to a hospital or the pharmacy. Patient ran out of insulin 2 days ago when he dropped his insulin bottles and the glass bottles broke. Around that time, his blood sugars a few days ago were >400-500. Since that time, patient has had progressively worsening polyuria, polydipsia, weakness, fatigue, nausea, vomiting, abdominal pain. Patient also endorses cold symptoms including runny nose, sinus congestion, as well as fever, chills, cough, chest pain, shortness of breath, dyspnea on exertion. Imaging Last Impressions Chest X-Ray 08/12/16 1653 Signed Impressions: Service Date/Time: Friday, August 12, 2016 17:31 - CONCLUSION: 1. Patchy mild basilar airspace disease most characteristic of bronchopneumonia. There is also some peribronchial thickening. Dejon Aviles MD PE at Discharge GENERAL: Thin Amina male, lying in bed in no acute distress. SKIN: No rashes, ecchymoses or lesions. HEENT: Moist mucous membranes. Poor dentition, no obvious injuries. Pupils equal round and reactive. Extraocular motions intact. CARDIOVASCULAR: Regular rate and rhythm without murmurs, gallops, or rubs. RESPIRATORY: Bilateral lower lobe rhonchi (right worse than left) with occasional expiratory wheezes, which seem to be improving GASTROINTESTINAL: Abdomen soft, non-tender, nondistended. No guarding. MUSCULOSKELETAL: Extremities without clubbing, cyanosis, or edema. NEUROLOGICAL: Awake and alert. Normal speech. Hospital Course The patient was admitted for DKA and bronchopneumonia. Patient was transferred to ICU for management of DKA. Patient was transitioned from IV insulin to subcutaneous insulin and was transferred out of the ICU to a medical floor. After considering treatment for hospital-acquired or healthcare associated pneumonia, decided to treat for community-acquired pneumonia with Levaquin. Discharged pt on Levofloxacin (Levaquin) 500 Mg Tab for 14 days of treatment and Insulin Aspart Inj (Novolog Inj) 8 UNITS SQ TIDAC and Insulin Human Isophane -Regular 70-30 Inj (Novolin 70-30 Inj) 40 UNITS SQ BID. Pt Condition on Discharge: Good Discharge Disposition: Discharge Home Discharge Instructions DIET: Follow Instructions for: Diabetic Diet Activities you can perform: Regular-No Restrictions Follow up Referrals: PCP Follow-up - 1 Week with Bibi Bates MD New Medications: Levofloxacin (Levaquin) 500 Mg Tab 500 MG PO DAILY Infection #12 Ref 0 TAB Insulin Aspart Inj (Novolog Inj) 1,000 Unit/10 Ml Vial 8 UNITS SQ TIDAC #1 VIAL Insulin Human Isophane-Regular 70-30 Inj (Novolin 70-30 Inj) 1,000 Unit/10 Ml Vial 40 UNITS SQ BID@08,17 #1 VIAL Continued Medications: Blood Glucose Monitoring W/Device (Glucocom Blood Glucose Mo W/Device) 1 Kit Kit 1 KIT .ROUTE DIRECTED Blood Sugar Management #1 KIT Glucocom Test Strips (Glucocom Test Strips) 1 Whitney Whitney 1 EA .ROUTE DIRECTED Blood Sugar Management #30 BOX Insulin Syringe/U-100/31G X 5/16" 1 ml (Insulin Syringe/U-100/31G X 5/16" 1 ml) 1 Mis Mis 1 EA .ROUTE DIRECTED Blood Sugar Management #1 Ref 0 BOX (This prescription has been renewed) Lancets (Lancets) 1 Mis Mis 1 EA .ROUTE DIRECTED Blood Sugar Management #1 Ref 0 BOX Parenteral Therapy Supplies (Sharpsafety Sharps Contai) 1 Mis Mis 1 EA .ROUTE DIRECTED #1 Ref 0 EA Discontinued Medications: Insulin Aspart Inj (Novolog Inj) 1,000 Unit/10 Ml Vial 1-9 UNITS SQ ACHS Max dose at bedtime:( )units; sugars less than 70,(0)units; sugars 150-199,(1) unit; sugars 200-249,(3) units; sugars 250-299,(5) units; sugars 300-349,(7) units; sugars greater than 349,(9) units Blood Sugar Management #30 Ref 0 ML Insulin Human Isophane-Regular 70-30 Inj (Novolin 70-30 Inj) 1,000 Unit/10 Ml Vial 30 UNITS SQ BID Blood Sugar Management #60 Ref 0 ML Daniel Farmer MD R1 Sep 24, 2016 15:39
== END 2016-08-15 15:18 | disposition home or self-care (01) | DRG 637 ==
LOC: NEPA 16:40 → NEDA 18:46 → HIMN 08-13 00:35 → N04B 08-13 15:07
PROVIDERS: ADMIT Family Medicine; ATTEND Family Medicine
DX: E10.10 Type 1 diabetes mellitus with ketoacidosis without coma (principal); J18.0 Bronchopneumonia, unspecified organism; F17.210 Nicotine dependence, cigarettes, uncomplicated; Z79.4 Long term (current) use of insulin; Z91.14 Patient's other noncompliance with medication regimen; Z91.19 Patient's noncompliance with other medical treatment and regimen; F12.90 Cannabis use, unspecified, uncomplicated; Z83.3 Family history of diabetes mellitus
CPT/HCPCS: 36600; 71010; 80048; 80053; 80307; 81001; 82010; 82805; 82948; 83036; 83690; 83735; 84100; 84155; 84484; 85025; 85610; 85730; 87040; 87449; 87641; 94640; 94664; 96361; 96374; J0456; J0692; J0696; J1644; J1815; J1817; J3480; J7030; J7042; J7050